=== PATIENT | female | born 1940 | race Asian ===

== ENCOUNTER 2019-01-24 10:00 | Outpatient (CLI) | payer MEDICARE, OTHER ==
--- NOTE | 2019-01-25 09:37 | DEXA Report ---
Reason: ASYMPTOMATIC MENOPAUSAL STATE Procedure Date: 01/24/2019 Accession Number: [id number] / [id number] Procedure: DEX - Dexa Spine and/or Hip CPT Code: FULL RESULT: EXAM: Dexa Spine and/or Hip DATE: 01/24/2019 10:45 AM CLINICAL HISTORY: ASYMPTOMATIC MENOPAUSAL STATE TECHNIQUE: Dual energy x-ray absorptiometry (DXA) was performed on a [employer] System. Regions measured are the AP Spine, femoral neck, and if needed forearm. COMPARISON: None. In accordance with the International Society for Clinical Densitometry (ISCD) guidelines, data from previous exams may be reanalyzed using current recommendations and techniques. This is done to allow a more accurate basis for comparison with the current study. FINDINGS: The data for the lumbar spine is as follows: BMD (g/cm/cm) T-SCORE Z-SCORE REGION L1 0.799 -2.8 -0.3 L2 0.849 -2.9 -0.4 L3 0.847 -2.9 -0.5 L4 0.890 -2.6 -0.1 TOTAL 0.849 -2.8 -0.3 NOTE: All evaluable vertebrae are used for classification The data for the hip is as follows: BMD (g/cm/cm) T-SCORE Z-SCORE REGION Neck 0.855 -1.3 1.1 TOTAL 0.791 -1.7 0.6 NOTE: The femoral neck or total proximal femur, whichever is lowest, is used for classification. IMPRESSION: THE WHO CLASSIFICATION BASED ON THE INTERNATIONAL REFERENCE STANDARD IS OSTEOPOROSIS. THE FRACTURE RISK IS HIGH. RECOMMENDATION: Patients with diagnosis of osteoporosis or osteopenia should have regular bone mineral density assessment. For those eligible for Medicare, routine testing is allowed once every 2 years. Testing frequency can be increased for patients who have rapidly progressing disease or for those who are receiving medical therapy to restore bone mass. COMMENT: World Health Organization (WHO) definitions for osteoporosis and osteopenia: NORMAL BMD: T-score at -1.0 or higher, fracture risk is low OSTEOPENIA BMD: T-score between -1.0 and -2.5, fracture risk is increased. OSTEOPOROSIS BMD: T-score at -2.5 or lower, fracture risk is high. National Osteoporosis Foundation recommends: 1. Obtain adequate dietary calcium (at least 1200 mg per day) and vitamin D (400-800 international units per day). 2. Participate, as appropriate, in regular weightbearing and muscle-strengthening exercise. 3. Avoid tobacco use and reduce alcohol and caffeine intake. 4. For more detailed information see the website at www.NOF.org.
== END 2019-01-24 10:01 | disposition home or self-care (01) ==
LOC: DI 10:00
PROVIDERS: ATTEND Plastic Surgery
DX: M81.0 Age-related osteoporosis without current pathological fracture (principal)
CPT/HCPCS: 77080

== ENCOUNTER 2019-09-10 18:26 | Observation (INO) | payer MEDICARE, OTHER ==
[2019-09-10 19:17] LABS: BASOPHILS % (AUTO) 0.2 %; LYMPHOCYTES # (AUTO) 0.6 10^3/uL (1.5-3.5); MEAN CORPUSCULAR HEMOGLOBIN 31.5 pg (27.0-31.0); MEAN CORPUSCULAR HGB CONC 32.7 g/dL (32.0-36.0); MEAN CORPUSCULAR VOLUME 96.1 fL (81.0-99.0); MONOCYTES # (AUTO) 0.1 10^3/uL (0.0-1.0); MONOCYTES % (AUTO) 1.6 %; NEUTROPHILS # (AUTO) 7.3 10^3/uL (1.5-6.6); PLT - PLATELET COUNT 208 10^3/uL (130-450); RED BLOOD COUNT 4.13 10^6/uL (4.20-5.40); RED CELL DISTRIBUTION WIDTH 13.3 % (12.0-15.0)
[2019-09-10 19:31] LABS: ALBUMIN 4.1 g/dL (3.2-5.5); ALBUMIN/GLOBULIN RATIO 1.2 (1.0-2.2); BILIRUBIN,TOTAL 1.2 mg/dL (0.2-1.0); CALCIUM 8.8 mg/dL (8.5-10.3); CREATININE 0.7 mg/dL (0.4-1.0); TOTAL PROTEIN 7.6 g/dL (6.7-8.2)
[2019-09-10 19:32] LABS: BILIRUBIN,URINE NEGATIVE (NEGATIVE); GLUCOSE, URINE (UA) NEGATIVE (NEGATIVE); KETONES,URINE (UA) 40 mg/dL (NEGATIVE); LEUKOCYTE ESTERASE, URINE NEGATIVE (NEGATIVE); NITRITE,URINE POSITIVE (NEGATIVE); OCCULT BLOOD,URINE SMALL (NEGATIVE); PROTEIN,URINE 30 mg/dL (NEGATIVE); UROBILINOGEN,URINE 0.2 (NORMAL) E.U./dL (NORMAL)
[2019-09-10 19:36] LABS: CLARITY,URINE CLEAR (CLEAR)
[2019-09-10 19:43] LABS: BACTERIA,URINE Many /HPF (None Seen); RBC,URINE 0-5 /HPF (0-5); SQUAMOUS EPITHELIAL CELL,UR NONE SEEN (<= Few)
--- NOTE | 2019-09-10 19:47 | ED Physician Documentation ---
PD HPI ABD PAIN - Stated complaint Stated Complaint: LOWER ABD PX, NAUSEA - Chief complaint Chief Complaint: Abd Pain - History obtained from History obtained from: Patient - History of Present Illness Timing - onset: Today (this morning, abrupt onset of pain left abd, which has persistent through the day.) Timing - duration: Days (1/2) Timing - details: Abrupt onset, Still present, Waxing and waning Quality: Cramping, Aching, Pain Location: LUQ, Periumbilical Radiation: Left flank Improved by: Position (worse lying on left side). No: Eating, Laying still Worsened by: No: Eating, Moving, Breathing Associated symptoms: Nausea, Loss of appetite. No: Fever, Vomiting, Diarrhea, Hematuria, Dizzy, Near syncope / syncope Similar symptoms before: Has not had sx before Recently seen: Not recently seen Review of Systems Constitutional: denies: Fever, Chills, Myalgias, Weight Loss Nose: denies: Rhinorrhea / runny nose, Congestion Throat: denies: Sore throat Cardiac: denies: Chest pain / pressure, Pedal edema, Calf pain Respiratory: denies: Cough GI: reports: Abdominal Pain, Nausea. denies: Abdominal Swelling, Vomiting, Diarrhea : denies: Dysuria, Frequency Neurologic: reports: Generalized weakness. 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 - Present Medications Home Medications: Ambulatory Orders Medication Instructions Recorded Confirmed No Known Home Medications 03/06/15 03/06/15 - Allergies Allergies/Adverse Reactions: Allergies Allergy/AdvReac Type Severity Reaction Status Date / Time No Known Drug Allergies Allergy Verified 03/06/15 17:31 PD ED PE NORMAL - Vitals Vital signs reviewed: Yes - General General: Alert and oriented X 3, No acute distress, Well developed/nourished - HEENT HEENT: Moist mucous membranes, Pharynx benign - Neck Neck: Supple, no meningeal sign, No adenopathy - Cardiac Cardiac: RRR, No murmur - Respiratory Respiratory: Clear bilaterally - Abdomen Abdomen: Normal bowel sounds, Soft, Non distended, No organomegaly, Other (Tend er in the mid to left-sided abdomen with out any percussion or rebound tenderness. The left flank has some moderate tenderness to percussion.) - Female Female : Deferred - Rectal Rectal: Deferred - Back Back: Other (left flank tender to percussion. ) - Derm Derm: Normal color, Warm and dry - Extremities Extremities: No tenderness to palpate, Normal ROM s pain, No edema, No calf tenderness / cord - Neuro Neuro: Alert and oriented X 3, No motor deficit, Normal speech Results - Vitals Vitals: Vital Signs - 24 hr 09/10/19 09/10/19 09/10/19 18:32 18:35 21:35 Temperature 36.9 C Heart Rate 77 77 77 Respiratory 18 18 18 Rate Blood Pressure 154/89 H 154/89 H 115/72 O2 Saturation 99 99 100 09/10/19 23:00 Temperature Heart Rate 77 Respiratory 16 Rate Blood Pressure 114/78 O2 Saturation 99 Oxygen O2 Source Room air - Labs Labs: Laboratory Tests 09/10/19 09/10/19 09/10/19 18:45 19:10 19:10 WBC 8.0 RBC 4.13 L Hgb 13.0 Hct 39.7 MCV 96.1 MCH 31.5 H MCHC 32.7 RDW 13.3 Plt Count 208 MPV 9.0 Neut # (Auto) 7.3 H Lymph # (Auto) 0.6 L Hendricks # (Auto) 0.1 Eos # (Auto) 0.0 Baso # (Auto) 0.0 Absolute Nucleated RBC 0.00 Nucleated RBC % 0.0 ESR Sodium 137 Potassium 3.7 Chloride 99 L Carbon Dioxide 25 Anion Gap 13.0 BUN 15 Creatinine 0.7 Estimated GFR (MDRD) 81 L Glucose 173 H Calcium 8.8 Total Bilirubin 1.2 H AST 25 ALT 12 Alkaline Phosphatase 51 Total Protein 7.6 Albumin 4.1 Globulin 3.5 Albumin/Globulin Ratio 1.2 Lipase 29 Urine Color YELLOW Urine Clarity CLEAR Urine pH 6.0 Ur Specific Dubberly 1.025 Urine Protein 30 H Urine Glucose (UA) NEGATIVE Urine Ketones 40 H Urine Occult Blood SMALL H Urine Nitrite POSITIVE H Urine Bilirubin NEGATIVE Urine Urobilinogen 0.2 (NORMAL) Ur Leukocyte Esterase NEGATIVE Urine RBC 0-5 Urine WBC 0-3 Ur Squamous Epith Cells NONE SEEN Urine Bacteria Many H Ur Microscopic Review INDICATED Urine Culture Comments INDICATED 09/10/19 23:35 WBC RBC Hgb Hct MCV MCH MCHC RDW Plt Count MPV Neut # (Auto) Lymph # (Auto) Hendricks # (Auto) Eos # (Auto) Baso # (Auto) Absolute Nucleated RBC Nucleated RBC % ESR 13 Sodium Potassium Chloride Carbon Dioxide Anion Gap BUN Creatinine Estimated GFR (MDRD) Glucose Calcium Total Bilirubin AST ALT Alkaline Phosphatase Total Protein Albumin Globulin Albumin/Globulin Ratio Lipase Urine Color Urine Clarity Urine pH Ur Specific Dubberly Urine Protein Urine Glucose (UA) Urine Ketones Urine Occult Blood Urine Nitrite Urine Bilirubin Urine Urobilinogen Ur Leukocyte Esterase Urine RBC Urine WBC Ur Squamous Epith Cells Urine Bacteria Ur Microscopic Review Urine Culture Comments - Rads (name of study) abd/pelvic CT Radiology: Prelim report reviewed (The superior aspect of the left kidney showed lack of contrast material and a wedge-shaped consistent with a renal infarct. The lower aspect of the kidney does have blood flow. There is no free fluid.), See rad report PD MEDICAL DECISION MAKING - ED course Complexity details: reviewed results (The CT scan shows renal infarct in the superior aspect of it. The CT otherwise was normal. I talked with vascular surgery in [facility] as [facility] did not have beds available. He however said the patient would not have any indication for intervention surgically nor endovascularly. The patient can be treated by medicine service with an she correction anticoagulation, fluids, pain medicine a nd evaluate for possible embolic phenomena versus thrombotic.), re-evaluated patient (She is feeling improved with some IV fluids along with medicines for pain and nausea.), considered differential, d/w patient, d/w lifestyle consultant (I talked with vascular surgery in [facility] who said they would not be any reason for endovascular approach. The infarct would be completed at this point and no salvageability of the infarcted section of the kidney. He suggested anticoagulation for 3 to 6 months and also an embolic work-up for concern of an embolic cause as thrombotic is less common. He suggested echocardiogram and coagulation hypercoagulable work-up and sed rate for inflammatory process. Dedicated ultrasound of the renal artery may be appropriate as well.) ED course: I talked with our hospitalist who agreed to have the patient in the hospital for further medications and fluids. She does have a UTI which presumably is incidental and not causative of the renal infarct. Evaluation for embolic phenomenon such as an echo cardiogram. Departure - Departure Disposition: ED Place in Observation Clinical Impression: Left sided abdominal pain, Renal infarct Urinary tract infection Qualifiers: Urinary tract infection type: site unspecified Hematuria presence: without hematuria Qualified Code(s): N39.0 - Urinary tract infection, site not specified Condition: Stable Record reviewed to determine appropriate education?: Yes Discharge Date/Time: 09/11/19 00:45
[2019-09-10] MEDS ORDERED: SODIUM CHLORIDE 0.9% 1,000 ML IV ONE (20:12)
[2019-09-10] MEDS ORDERED: ONDANSETRON 4 MG/2 ML VIAL IVP STA (20:12)
[2019-09-10] MEDS ORDERED: MORPHINE 2 MG/ML CARPUJECT IVP STA (20:12)
[2019-09-10] MEDS ORDERED: cefTRIAXone 1 GM VIAL IVP STA (20:13)
[2019-09-10] MEDS ORDERED: IOVERSOL 320 100 ML VIAL IVP ONE ×2 (20:35→21:00)
--- NOTE | 2019-09-10 21:27 | CT Report ---
Reason: lower/mid abd pain Procedure Date: 09/10/2019 Accession Number: [id number] / [id number] Procedure: CT - Abdomen/Pelvis W CPT Code: Final Report FULL RESULT: EXAM: CT ABDOMEN AND PELVIS EXAM DATE: 09/10/2019 08:57 PM. CLINICAL HISTORY: Lower/mid abd pain. COMPARISONS: None. TECHNIQUE: Routine helical CT imaging was performed through the abdomen and pelvis. IV contrast: OPTI 320 90ML. Enteric contrast: No. Reconstructions: Coronal and sagittal. In accordance with CT protocol optimization, one or more of the following dose reduction techniques were utilized for this exam: automated exposure control, adjustment of mA and/or KV based on patient size, or use of iterative reconstructive technique. FINDINGS: Lung Bases: Unremarkable. Liver: Normal. No masses. Gallbladder/Bile Ducts: Unremarkable. Spleen: Normal. Pancreas: Normal. Adrenal Glands: Normal. Kidneys: A large wedge shaped focus of hypoattenuation in superior pole of left kidney (image 19 on series 4), concerning for renal infarct. A 1 cm hypodense simple cyst in lower pole of left kidney. No concerning masses or hydronephrosis. Peritoneal Cavity/Bowel: Normal. No free fluid, free air or adenopathy. No masses or acute inflammatory process. The appendix is well visualized and normal. Pelvic Organs: Normal. The bladder and visualized pelvic organs are within normal limits. Vasculature: Mild atherosclerotic calcification of abdominal aorta extending into bilateral iliacs. Bones: No significant abnormality. Other: None. IMPRESSION: A large wedge shaped focus of hypoattenuation in superior pole of left kidney, concerning for renal infarct. No other significant abdominal pathology. RADIA
[2019-09-10] MEDS ORDERED: ENOXAPARIN 60 MG/0.6 ML SYRINGE SUBQ STA (23:12)
[2019-09-10] MEDS ORDERED: ONDANSETRON 4 MG/2 ML VIAL IVP PRN (23:36)
[2019-09-10] MEDS ORDERED: MORPHINE 2 MG/ML CARPUJECT IVP PRN (23:36)
[2019-09-10] MEDS ORDERED: SODIUM CHLORIDE FLUSH 0.9% 10 ML SYRINGE IVP PRN (23:36)
[2019-09-10] MEDS ORDERED: ENOXAPARIN 100 MG/ML SYRINGE SUBQ ONE (23:44)
[2019-09-10] MEDS ORDERED: ENOXAPARIN 60 MG/0.6 ML SYRINGE SUBQ SCH (23:45)
--- NOTE | 2019-09-10 23:55 | HISTORY & PHYSICAL EXAMINATION ---
Chief Complaint - Chief Complaint Chief Complaint: abd pain History of Present Illness - Admitted From Admitted From:: [facility] - History Obtained From Records Reviewed: yes History obtained from: patient and spouse - History of Present Illness HPI Comment/Other: Patient is a 79 y/o female who presented to the ED with sudden onset of lower abdominal pain which started around 9 am this morning after she woke up. She denied any previous occurrence or any complains the previous day. She denied chest pain, dyspnea, nausea, vomiting, fever or chills. In the ED work up included a CT abdomen/pelvis which showed a large wedged shaped focus of hypoat tenuation in the superior pole of the left kidney, concerning for renal infarct. She denied flank pain. She denied any recent procedures. She denied any history of cardiac disease, irregular rhythms or murmurs. She also had a UA which was indicative of a UTI. As a result she was presented for admission History - Past Medical History Cardiovascular: reports: None Respiratory: reports: None Neuro: reports: Dementia Endocrine/Autoimmune: reports: None GI: reports: None ONLINE TRADER: reports: Breast cancer : reports: None HEENT: reports: None Psych: reports: None Musculoskeletal: reports: None Derm: reports: None MRSA Hx?: No - Past Surgical History /ONLINE TRADER: reports: section, Mastectomy (bilateral) - Family & Social History Family History: Brother: Cancer (brothers from GI cancer) Living arrangement: At home Living Situation: With spouse/s.o. Social History Notes: She has never smoked. Drinks occassionally. No illicit drug use - POLST Patient has POLST: No POLST Status: Full Code Meds/Allgy - Home Medications Home Medications: Ambulatory Orders Medication Instructions Recorded Confirmed No Known Home Medications 03/06/15 03/06/15 - Allergies Allergies/Adverse Reactions: Allergies Allergy/AdvReac Type Severity Reaction Status Date / Time No Known Drug Allergies Allergy Verified 03/06/15 17:31 Review of Systems - Constitutional Constitutional: denies: Fatigue, Fever, Chills - Eyes Eyes: denies: Pain, Blurred vision, Vision loss, Dipolpia - Ears, Nose & Throat Ears, Nose & Throat: denies: Vertigo, Nasal pain, Sore throat - Cardiovascular Cariovascular: denies: Irregular heart rate, Palpitations, Chest pain, Edema, Lightheadedness, Syncope, Exertional dyspnea, Decr. exercise tolerance - Respiratory Respiratory: denies: Cough, Sputum production, Wheezing, Snoring, SOB at rest, SOB with exertion - Gastrointestinal Gastrointestinal: reports: Abdominal pain (lower abdomen). denies: Abdominal distention, Nausea, Vomiting, Reflux/heartburn - Genitourinary Genitourinary: denies: Dysuria, Frequency, Urgency, Hematuria, Flank pain - Musculoskeletal Musculoskeletal: denies: Back pain - Integumentary Integumentary: denies: Rash, Pruritis, Lesions, Dryness, Pigment changes - Neurological Neurological: denies: General weakness, Focal weakness, Headache, Dizziness - Psychiatric Psychiatric: denies: Depression, Anxiety - Endocrine Endocrine: denies: Polyuria, Polydypsia - Hematologic/Lymphatic Hematologic/Lymphatic: denies: Anemia, Bruising, Petechiae Prior Level of Functionality: She is independent of activities of daily living Exam - Vital Signs Vital Signs: Vital Signs x48h Temp Pulse Resp BP Pulse Ox 09/10/19 23:00 77 16 114/78 99 09/10/19 21:35 77 18 115/72 100 09/10/19 18:35 77 18 154/89 H 99 09/10/19 18:32 36.9 C 77 18 154/89 H 99 - Physical Exam General Appearance: positive: Alert, Moderate distress Eyes Bilateral: positive: Normal inspection, PERRL, EOMI ENT: positive: ENT inspection nml, No signs of dehydration Neck: positive: Nml inspection, No JVD, Trachea midline Respiratory: positive: Chest non-tender, No respiratory distress, Breath sounds nml. negative: Wheezes, Rales, Rhonchi Cardiovascular: positive: Regular rate & rhythm. negative: No murmur Abdomen: positive: Non-tender, Nml bowel sounds, No distention, Tenderness. negative: Guarding, Rebound Back: positive: Nml inspection Skin: positive: Color nml, No rash, Warm, Dry. negative: Cyanosis, Pallor, Skin rash Extremities: positive: Non-tender, Full ROM, Nml appearance, No pedal edema Neurologic/Psychiatric: positive: Oriented x3, Motor nml, Sensation nml, Mood/affect nml Conclusion/Plan - Problem List (1) Renal infarct Conclusion/Plan: Left sided. Superior pole Patient started on lovenox 50mg bid Will be swtiched to and oral anticoagulant prior to discharge Per vascular surgery, no intervention is warranted since infarct is complete Patient will need to be on the oral anticoagulant for 6 months 2D echo ordered for the am. (2) Urinary tract infection Conclusion/Plan: Patient started on Rocephin Urine culture pending Qualifiers: Urinary tract infection type: site unspecified Hematuria presence: without hematuria Qualified Code(s): N39.0 - Urinary tract infection, site not specified (3) Dementia Conclusion/Plan: Mild On Namenda and Aricept Qualifiers: Dementia behavioral disturbance: without behavioral disturbance - Lab Results Fish Bones: 09/10/19 19:10 09/10/19 19:10 Core Measures - Anticipated LOS I expect patient to be DC'd or transferred within 96 hours.: Yes - DVT/VTE - Prophylaxis VTE/DVT Device ordered at admit?: Yes VTE/DVT Prophylaxis med ordered at admit?: Yes
[2019-09-11] MEDS: SODIUM CHLORIDE FLUSH 0.9% 10 ML SYRINGE IVP SCH ×3 (01:35→19:19)
[2019-09-11] MEDS: MEMANTINE 5 MG TABLET PO SCH ×2 (02:13→20:18)
[2019-09-11] MEDS: DONEPEZIL 5 MG TABLET PO SCH ×2 (02:13→20:18)
[2019-09-11 05:33] LABS: BASOPHILS % (AUTO) 0.2 %; EOSINOPHILS % (AUTO) 0.2 %; HGB - HEMOGLOBIN 11.3 g/dL (12.0-16.0); LYMPHOCYTES # (AUTO) 2.1 10^3/uL (1.5-3.5); LYMPHOCYTES % (AUTO) 25.7 %; MEAN CORPUSCULAR HGB CONC 32.3 g/dL (32.0-36.0); MEAN CORPUSCULAR VOLUME 96.2 fL (81.0-99.0); MEAN PLATELET VOLUME 9.4 fL (7.9-10.8); MONOCYTES # (AUTO) 0.7 10^3/uL (0.0-1.0); MONOCYTES % (AUTO) 8.1 %; NEUTROPHILS # (AUTO) 5.3 10^3/uL (1.5-6.6); NEUTROPHILS % (AUTO) 65.4 %; PLT - PLATELET COUNT 190 10^3/uL (130-450); RED BLOOD COUNT 3.64 10^6/uL (4.20-5.40); RED CELL DISTRIBUTION WIDTH 13.5 % (12.0-15.0); WHITE BLOOD COUNT 8.2 x10^3/uL (4.8-10.8)
[2019-09-11 05:38] LABS: INR 1.1 (0.8-1.2); PT - PROTHROMBIN TIME 12.7 secs (9.9-12.6)
[2019-09-11 05:44] LABS: CALCIUM 8.2 mg/dL (8.5-10.3); CREATININE 0.6 mg/dL (0.4-1.0)
[2019-09-11 05:51] LABS: PARTIAL THROMBOPLASTIN TIME 46.3 secs (24.9-33.3)
[2019-09-11] MEDS ORDERED: PANTOPRAZOLE 40 MG VIAL IVP SCH (07:00)
[2019-09-11] MEDS ORDERED: cefTRIAXone 1 GM in SODIUM CHLORIDE 0.9% MINIBAG 100 ML IV SCH (09:00)
[2019-09-11] MEDS ORDERED: POTASSIUM CHLORIDE 20 MEQ TABLET PO ONE (09:12)
[2019-09-11] MEDS: ENOXAPARIN 60 MG/0.6 ML SYRINGE SUBQ SCH ×2 (09:15→20:17)
[2019-09-11] MEDS ORDERED: ACETAMINOPHEN 325 MG TABLET PO PRN (11:58)
--- NOTE | 2019-09-11 15:08 | PHARMACY PROGRESS NOTE ---
- Best Possible Medication History Admit Date and Time: 09/10/19 1618 Processed by: Pharmacy Medication History completed: Yes Patient Interview: Completed Secondary Source(s): Prescription bottles, Spouse/Significant other As the person ultimately responsible for medication therapy, providers are able to order a medication from an existing home medication list in [facility] via the "Reconcile Routine" prior to Confirmation of that medication by community support specialist. Such practice is discouraged except when the physician, in their clinical judgment, deems that a medical need exists for a medication without regard to previous use.
--- NOTE | 2019-09-11 19:23 | Discharge Plan ---
Discharge Plan Problem Reviewed?: Yes Disposition: Home, Self Care Condition: Good Prescriptions: Apixaban [Eliquis] 10 mg PO BID 7 Days #28 tablet Apixaban [Eliquis] 5 mg PO BID #60 tablet Diet: Regular Activity Restrictions: Activity as Tolerated Shower Restrictions: No Driving Restrictions: No Health Concerns: You were seen in the hospital because you had abdominal pain along with nausea and vomiting. This has since improved and you are able to tolerate oral intake. You were incidentally found to have what is called an infarct of your left kidney. Part of the kidney likely had decreased blood supply in the past and this has caused the tissue there to . Fortunately your kidney numbers are stable. We discussed with the vascular surgeon at [facility] and they recommended starting you on a blood thinner which you need to continue to take for at least 3 months. You will need blood work done eventually once you are off the blood thinner thinner to see if you are at increased risk of having thick blood. There was initially a concern for urinary tract infection but because you had no symptoms, you no longer continue on antibiotics. If you do develop symptoms such as burning, foul-smelling urine, cloudy urine then please see your primary care physician. Plan of Treatment: Please take the blood thinner as prescribed. Eliquis is the blood thinner you will be taking. Please take 10 mg twice a day for the first 7 days and then take 5 mg twice a day. You will need to be on this for at least 3 months but possibly up to 6 months. Please follow-up with your primary care physician. Care Goals: Please follow-up with your primary care physician within 1 week. You will need blood work in the future once you are off the blood thinner to see if you are at increased risk of having thick blood. No Smoking: If you smoke, Please STOP! Call for help.
--- NOTE | 2019-09-11 19:26 | DISCHARGE SUMMARY ---
"Discharge Summary Admit Date: 09/10/19 Discharge Date: 09/11/19 Discharging Provider: Raheem Rogers Condition at Discharge: Good Discharge Disposition: Home, Self Care - DIAGNOSES Admission Diagnoses: Renal infarct Urinary tract infection Dementia Discharge Diagnoses with Status of Each Condition: Renal infarct - Was evident on the CT of the abdomen and pelvis. This is likely an incidental finding but vascular surgery recommended anticoagulation for at least 3 months. She started on Lovenox twice a day. An echo was obtained which did not show thrombus. She remained in a sinus rhythm while she was hospitalized. She was discharged on Eliquis to continue anticoagulation and she was asked to follow-up with her primary care physician. Hypercoagulable study was not pursued as she was already on anticoagulation. This will be needed once she is completed with anticoagulation and can be done by her primary care provider Asymptomatic bacteriuria - Her urine analysis revealed positive nitrites and many bacteria but there were no WBCs or leukocyte esterase. She was asymptomatic. She was initially started on ceftriaxone but this was discontinued given she had no symptoms. She was asked to follow-up with her primary care provider if she develops symptoms suggestive of UTI. Dementia - Stable. She will continue her home Aricept and Namenda. - HPI History of Present Illness: H&P per Dr. Rodriguez on 09/10/19: Patient is a 79 y/o female who presented to the ED with sudden onset of lower abdominal pain which started around 9 am this morning after she woke up. She denied any previous occurrence or any complains the previous day. She denied chest pain, dyspnea, nausea, vomiting, fever or chills. In the ED work up inclu ded a CT abdomen/pelvis which showed a large wedged shaped focus of hypoattenuation in the superior pole of the left kidney, concerning for renal infarct. She denied flank pain. She denied any recent procedures. She denied any history of cardiac disease, irregular rhythms or murmurs. She also had a UA which was indicative of a UTI. As a result she was presented for admission - CONSULTS | PROCEDURES Procedures: She had an echocardiogram which showed ejection fraction of 65%. There is no thrombus present. - HOSPITAL COURSE Hospital Course: He was admitted for abdominal pain along with nausea and vomiting. She was found to have a left-sided renal infarct on CT of the abdomen and pelvis. Vascular surgery recommended anticoagulation and she was started on Lovenox 50 mg twice a day. The patient was started on clear liquid diet which she tolerated well and her diet was advanced. She reported no more nausea or vomiting. She was then discharged on Eliquis for anticoagulation. She will take 10 mg twice a day for 7 days followed by 5 mg twice a day. She was asked to follow-up with her primary care physician to obtain a hypercoagulable work up in the future once she finishes her anticoagulation which vascular surgery recommended to continue for at least 3 to 6 months. Was concern for urinary tract infection initially and she started on ceftriaxone given her abdominal pain and the fact that her urinalysis showed positive nitrites and many bacteria. She had no pyuria and negative leukocyte esterase. She had no symptoms suggestive of an infection, antibiotics were discontinued. - ALLERGIES Allergies/Adverse Reactions: Allergies Allergy/AdvReac Type Severity Reaction Status Date / Time No Known Drug Allergies Allergy Verified 03/06/15 17:31 - MEDICATIONS Home Medications: Ambulatory Orders Medication Instructions Recorded Confirmed Apixaban [Eliquis] 5 mg PO BID #60 tablet 09/11/19 Apixaban [Eliquis] 10 mg PO BID 7 Days #28 tablet 09/11/19 Donepezil [Aricept] 5 mg PO QPM 09/11/19 09/11/19 Memantine HCl [Namenda] 10 mg PO DAILY 09/11/19 09/11/19 - PHYSICAL EXAM AT DISCHARGE General Appearance: positive: No acute distress, Alert Eyes Bilateral: positive: Normal inspection ENT: positive: ENT inspection nml Neck: positive: Nml inspection Respiratory: positive: No respiratory distress, Breath sounds nml. negative: Wheezes, Rales, Rhonchi Cardiovascular: positive: Regular rate & rhythm, No murmur. negative: Tachycardia, Bradycardia, Systolic murmur, Diastolic murmur Abdomen: positive: Non-tender, No distention. negative: Tenderness Skin: positive: No rash, Warm, Dry Neurologic/Psychiatric: negative: Disoriented to person, Disoriented to place - LABS Result Diagrams: 09/11/19 04:40 09/11/19 04:40 - DIAGNOSTIC IMAGING Diagnostic Imaging Results: Final report reviewed - FOLLOW UP Follow Up: She was asked to follow-up with her primary care physician within 1 to 2 weeks. - TIME SPENT Time Spent in Discharge (Minutes): 30"
[2019-09-11 20:23] VITALS: BP 136/81
== END 2019-09-11 20:40 | disposition home or self-care (01) ==
LOC: ED 18:26 → MS3 23:36
PROVIDERS: ADMIT Internal Medicine; ATTEND Internal Medicine
DX: N28.0 Ischemia and infarction of kidney (principal); R10.32 Left lower quadrant pain; R11.2 Nausea with vomiting, unspecified; R82.71 Bacteriuria; F03.90 Unspecified dementia, unspecified severity, without behavioral disturbance, psychotic disturbance, mood disturbance, and anxiety; Z79.899 Other long term (current) drug therapy; Z85.3 Personal history of malignant neoplasm of breast; Z90.13 Acquired absence of bilateral breasts and nipples
CPT/HCPCS: 36415; 74177; 80048; 80053; 81001; 83690; 85025; 85610; 85651; 85730; 87077; 87086; 87181; 93005; 93306; 96361; 96365; 96372; 96375; 99284; 99285; A9270; G0378; J1650; Q9967; 81003

== ENCOUNTER 2019-09-18 12:13 | Emergency (ER) | payer MEDICARE, OTHER ==
--- NOTE | 2019-09-18 12:39 | ED Physician Documentation ---
History of Present Illness - Stated complaint Stated Complaint: ABD/CHEST PX,LETHARGIC - Chief complaint Chief Complaint: General - History obtained from History obtained from: Patient, Family - History of Present Illness Pain level max: 5 Pain level now: 3 Improved by: nothing Worsened by: nothing - Additonal information Additional information: 79-year-old female presents to the emergency department with diffuse abdominal and chest pain for the past several days. Comes and goes. Seems to be worse today. Was admitted last week for same. Does have nausea as well. No vomiting. No diarrhea. CT scan last week showed a possible renal infarct, she was started on Eliquis. She also had a UTI but was not sent home on antibiotics. She was given Rocephin x1 in the hospital. She has not had any fevers. No back pain. History is limited by her dementia and memory impairment. Family helps to fill in the gaps. Review of Systems Unable to obtain: Dementia Constitutional: denies: Fever, Chills Nose: denies: Rhinorrhea / runny nose Throat: denies: Sore throat Cardiac: denies: Palpitations Respiratory: denies: Cough GI: reports: Nausea. 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 : None HEENT: None Psych: None Musculoskeletal: None Derm: None - Past Surgical History Past Surgical History: Yes /APPLICATION SOFTWARE DEVELOPER: section, Mastectomy - Present Medications Home Medications: Ambulatory Orders Medication Instructions Recorded Confirmed Apixaban [Eliquis] 5 mg PO BID #60 tablet 09/11/19 Apixaban [Eliquis] 10 mg PO BID 7 Days #28 tablet 09/11/19 Donepezil [Aricept] 5 mg PO QPM 09/11/19 09/11/19 Memantine HCl [Namenda] 10 mg PO DAILY 09/11/19 09/11/19 Cephalexin [Keflex] 500 mg PO Q6H #28 capsule 09/18/19 Promethazine [Phenergan] 12.5 mg PO Q6H PRN #10 tab 09/18/19 oxyCODONE [Roxicodone] 2.5 - 5 mg PO Q6H PRN #10 tablet 09/18/19 - Allergies Allergies/Adverse Reactions: Allergies Allergy/AdvReac Type Severity Reaction Status Date / Time No Known Drug Allergies Allergy Verified 03/06/15 17:31 - Social History Does the pt smoke?: No Smoking Status: Never smoker Does the pt drink ETOH?: No Does the pt have substance abuse?: No - Immunizations Immunizations are current?: Yes - POLST Patient has POLST: No POLST Status: Full Code PD ED PE NORMAL - Vitals Vital signs reviewed: Yes - General General: No acute distress, Well developed/nourished - HEENT HEENT: Atraumatic, PERRL, Moist mucous membranes, Pharynx benign - Neck Neck: Supple, no meningeal sign, No bony TTP - Cardiac Cardiac: RRR, Strong equal pulses - Respiratory Respiratory: No respiratory distress, Clear bilaterally - Abdomen Abdomen: Soft, Other (Mild diffuse tenderness to palpation without peritoneal signs) - Back Back: No spinal TTP - Derm Derm: Warm and dry - Extremities Extremities: No edema - Neuro Neuro: Other (Alert, oriented to person and place. Disoriented to time. Pleasant) - Psych Psych: Normal mood Results - Vitals Vitals: Vital Signs - 24 hr 09/18/19 09/18/19 09/18/19 12:31 13:30 15:27 Temperature 36.5 C 36.5 C Heart Rate 63 78 60 Respiratory 18 16 16 Rate Blood Pressure 165/90 H 147/95 H 169/92 H O2 Saturation 99 99 100 09/18/19 09/18/19 09/18/19 16:09 17:00 17:30 Temperature Heart Rate 66 69 71 Respiratory 16 18 15 Rate Blood Pressure 128/92 H 145/94 H 127/82 H O2 Saturation 97 97 95 Oxygen O2 Source Room air - EKG (time done) 1231 Rate: Rate (enter#) (65) Rhythm: NSR [place]: Normal Intervals: Normal GA QRS: Normal Ischemia: Normal ST segments - Labs Labs: Laboratory Tests 09/18/19 09/18/19 09/18/19 12:49 12:49 12:49 WBC 7.7 RBC 3.96 L Hgb 12.2 Hct 37.8 MCV 95.5 MCH 30.8 MCHC 32.3 RDW 13.4 Plt Count 233 MPV 8.6 Neut # (Auto) 6.3 Lymph # (Auto) 0.8 L [place] # (Auto) 0.5 Eos # (Auto) 0.0 Baso # (Auto) 0.0 Absolute Nucleated RBC 0.00 Nucleated RBC % 0.0 Sodium 138 Potassium 3.1 L Chloride 100 L Carbon Dioxide 26 Anion Gap 12.0 BUN 13 Creatinine 0.8 Estimated GFR (MDRD) 70 L Glucose 166 H Lactic Acid Calcium 8.5 Total Bilirubin 1.2 H AST 24 ALT 28 Alkaline Phosphatase 70 Troponin I High Sens 4.2 Total Protein 7.4 Albumin 3.6 Globulin 3.8 Albumin/Globulin Ratio 0.9 L Lipase 32 Urine Color Urine Clarity Urine pH Ur Specific [place] Urine Protein Urine Glucose (UA) Urine Ketones Urine Occult Blood Urine Nitrite Urine Bilirubin Urine Urobilinogen Ur Leukocyte Esterase Urine RBC Urine WBC Ur Squamous Epith Cells Urine Bacteria Ur Microscopic Review Urine Culture Comments 09/18/19 09/18/19 13:15 13:23 WBC RBC Hgb Hct MCV MCH MCHC RDW Plt Count MPV Neut # (Auto) Lymph # (Auto) [place] # (Auto) Eos # (Auto) Baso # (Auto) Absolute Nucleated RBC Nucleated RBC % Sodium Potassium Chloride Carbon Dioxide Anion Gap BUN Creatinine Estimated GFR (MDRD) Glucose Lactic Acid 1.4 Calcium Total Bilirubin AST ALT Alkaline Phosphatase Troponin I High Sens Total Protein Albumin Globulin Albumin/Globulin Ratio Lipase Urine Color YELLOW Urine Clarity SL. CLOUDY Urine pH 6.0 Ur Specific [place] 1.025 Urine Protein 100 H Urine Glucose (UA) NEGATIVE Urine Ketones TRACE Urine Occult Blood LARGE H Urine Nitrite NEGATIVE Urine Bilirubin NEGATIVE Urine Urobilinogen 1 (NORMAL) Ur Leukocyte Esterase NEGATIVE Urine RBC TNTC H Urine WBC 0-3 Ur Squamous Epith Cells NONE SEEN Urine Bacteria Few Ur Microscopic Review INDICATED Urine Culture Comments NOT INDICATED - Rads (name of study) CT angiogram abdomen and pelvis Radiology: Prelim report reviewed, EMP read contemporaneously, See rad report PD MEDICAL DECISION MAKING - ED course Complexity details: reviewed results, re-evaluated patient, considered differential, d/w patient, d/w family, d/w clinical documentation consultant (Dr. Gutierrez, vascular surgery, [facility] in [place]) ED course: 79-year-old demented female presents with abdominal and chest pain. We will treat her for the UTI. Her renal infarct appears to be involving. She does have a possible short segment dissection versus disease in her distal aspect of the NIKKI. Discussed the findings with vascular surgery at [facility] in [place], they recommend continuing her current care. Patient and family are comfortable with this. Social work was also consulted and family was given dementia resources. Patient is well-appearing, nontoxic. Pain well controlled. Patient and family counseled regarding signs and symptoms for which I believe and urgent re-evaluation would be necessary. Patient with good understanding of and agreement to plan and is comfortable going home at this time This document was made in part using voice recognition software. While efforts are made to proofread this document, sound alike and grammatical errors may occur. IMPRESSION: 1. No evidence of abdominal aortic aneurysm, stenosis or occlusion. Patent celiac artery, SMA and NIKKI. 2. Linear low density in the NIKKI extending from just distal to its origin into a branch vessel which extends to the left colon. Findings may represent a short segment dissection versus irregular atheromatous disease, a component which causes stenosis at the origin of the branch vessel which extends to the descending colon. Lack of opacification of the distal aspect of the NIKKI branch which extends to the descending colon which may be due to acute occlusion, limited flow or changes related to stenosis. The NIKKI is larger in size in comparison to the recent study from 09/10/2019. 2. Patent renal arteries bilaterally. No occlusion or severe stenosis. 3. Evolving segments of decreased attenuation throughout the upper and lower pole of the kidney consistent with evolving infarcts with more extensive involvement of the lower pole of the left kidney compared to 09/10/2019. 4. Mild thickening of the descending colon suggested although not definitive and limited in detail due to lack of distention. No other areas of bowel wall thickening are seen on these arterial enhanced images. 5. Cardiomegaly. Departure - Departure Disposition: Home, Self Care Clinical Impression: Renal infarct, Stenosis of inferior mesenteric artery Urinary tract infection Qualifiers: Urinary tract infection type: acute cystitis Hematuria presence: without he maturia Qualified Code(s): N30.00 - Acute cystitis without hematuria Condition: Good Instructions: ED UTI Cystitis Female Follow-Up: DAJUAN WALLS MD [Primary Care Provider] - Within 1 week Prescriptions: Cephalexin [Keflex] 500 mg PO Q6H #28 capsule oxyCODONE [Roxicodone] 2.5 - 5 mg PO Q6H PRN #10 tablet PRN Reason: Abdominal Pain Promethazine [Phenergan] 12.5 mg PO Q6H PRN #10 tab PRN Reason: Nausea / Vomiting Comments: Use the medications as prescribed. Return if she worsens. Follow-up with your doctor for further care. She will likely have pain for several weeks due to the renal infarct. I did speak with Dr. Gutierrez, vascular surgery, at [facility] in [place] today and she recommends continuing the Eliquis. Do not drink alcohol or drive while on narcotic pain medicine. Note that many narcotic pain relievers also contain tylenol/acetaminophen. Please ensure that your total dose of acetaminophen from all sources does not exceed 3 grams (3000mg) per day. You may constipated on this medication, take a stool softener such as "Colace" twice a day while you are on it. Also recommend a mvkl-heb-[id number] laxative such as senna or MiraLAX any day that you do not have a bowel movement. If you received narcotic pain medication in the emergency department, do not drive or operate machinery for the next 24 hours. Discharge Date/Time: 09/18/19 17:43
[2019-09-18] MEDS ORDERED: cefTRIAXone 1 GM VIAL IVP STA (12:52)
[2019-09-18] MEDS ORDERED: SODIUM CHLORIDE 0.9% 1,000 ML IV ONE (12:53)
[2019-09-18] MEDS ORDERED: PROMETHAZINE INJ 12.5 MG in SODIUM CHLORIDE 0.9% 50 ML IV STA (12:55)
[2019-09-18 13:12] LABS: BASOPHILS % (AUTO) 0.4 %; EOSINOPHILS % (AUTO) 0.4 %; HGB - HEMOGLOBIN 12.2 g/dL (12.0-16.0); LYMPHOCYTES # (AUTO) 0.8 10^3/uL (1.5-3.5); LYMPHOCYTES % (AUTO) 10.4 %; MEAN CORPUSCULAR HEMOGLOBIN 30.8 pg (27.0-31.0); MEAN CORPUSCULAR HGB CONC 32.3 g/dL (32.0-36.0); MEAN CORPUSCULAR VOLUME 95.5 fL (81.0-99.0); MEAN PLATELET VOLUME 8.6 fL (7.9-10.8); MONOCYTES # (AUTO) 0.5 10^3/uL (0.0-1.0); MONOCYTES % (AUTO) 6.6 %; NEUTROPHILS # (AUTO) 6.3 10^3/uL (1.5-6.6); NEUTROPHILS % (AUTO) 81.8 %; PLT - PLATELET COUNT 233 10^3/uL (130-450); RED BLOOD COUNT 3.96 10^6/uL (4.20-5.40); RED CELL DISTRIBUTION WIDTH 13.4 % (12.0-15.0); WHITE BLOOD COUNT 7.7 x10^3/uL (4.8-10.8)
[2019-09-18] MEDS ORDERED: IOVERSOL 320 100 ML VIAL IVP ONE ×2 (13:24→15:01)
[2019-09-18 13:27] LABS: ALBUMIN 3.6 g/dL (3.2-5.5); ALBUMIN/GLOBULIN RATIO 0.9 (1.0-2.2); BILIRUBIN,TOTAL 1.2 mg/dL (0.2-1.0); CALCIUM 8.5 mg/dL (8.5-10.3); CREATININE 0.8 mg/dL (0.4-1.0); TOTAL PROTEIN 7.4 g/dL (6.7-8.2)
[2019-09-18 13:53] LABS: BILIRUBIN,URINE NEGATIVE (NEGATIVE); GLUCOSE, URINE (UA) NEGATIVE (NEGATIVE); KETONES,URINE (UA) TRACE mg/dL (NEGATIVE); LEUKOCYTE ESTERASE, URINE NEGATIVE (NEGATIVE); NITRITE,URINE NEGATIVE (NEGATIVE); OCCULT BLOOD,URINE LARGE (NEGATIVE); PROTEIN,URINE 100 mg/dL (NEGATIVE); UROBILINOGEN,URINE 1 (NORMAL) E.U./dL (NORMAL)
[2019-09-18 13:54] LABS: CLARITY,URINE SL. CLOUDY (CLEAR)
[2019-09-18 14:05] LABS: BACTERIA,URINE Few /HPF (None Seen); RBC,URINE TNTC /HPF (0-5); SQUAMOUS EPITHELIAL CELL,UR NONE SEEN (<= Few)
--- NOTE | 2019-09-18 15:16 | CT Report ---
Reason: abd pain, L renal infarct Procedure Date: 09/18/2019 Accession Number: [id number] / [id number] Procedure: CT - ANGIO ABDOMEN/PELVIS W CPT Code: Final Report FULL RESULT: EXAM: CT ANGIOGRAM ABDOMEN AND PELVIS WITH CONTRAST EXAM DATE: 09/18/2019 02:33 PM. CLINICAL HISTORY: Abdomen pain, history of left renal infarct. Upper abdominal pain. COMPARISONS: ABDOMEN/PELVIS W/ 09/10/2019 8:51 PM. TECHNIQUE: Routine helical CT angiogram imaging was performed through the abdomen and pelvis in the arterial phase and without contrast. IV contrast: OPTI-320 90 mL. Enteric contrast: No. Reconstructions: Coronal, sagittal, and 3D MIP reconstructions. In accordance with CT protocol optimization, one or more of the following dose reduction techniques were utilized for this exam: automated exposure control, adjustment of mA and/or KV based on patient size, or use of iterative reconstructive technique. FINDINGS: Vasculature: Distal descending thoracic aorta is normal in caliber. Abdominal aorta at the level of the SMA measures 2 cm. Distal abdominal aorta proximal to the aortic bifurcation measures 1.6 cm. Abdominal aorta is widely patent. Mild atheromatous disease. Celiac artery is patent. SMA is widely patent. NIKKI is patent although distal to its origin there is irregular low-density linear area within its lumen which may be due to a short segment dissection or focal irregular atheromatous disease seen best on axial images 92-104. Lobular contour of the more distal vessel and possibly mild stenosis as well as irregular atheromatous plaque is noted. Distal to this segment there is limited opacification of contrast to the branch vessel from the NIKKI which extends to the descending colon. Splenic artery and hepatic artery are patent. Right renal artery is widely patent. Slightly lobular contour of the distal right renal artery. Note that some motion limits detail. Left renal artery is widely patent. There is slight lobular contour of the upper pole left renal artery possibly with mild focal atheromatous disease. The renal artery branches can be seen into each kidney into the parenchyma. Iliac and femoral vessels are patent. Mild atheromatous disease is seen in the iliac arteries. No severe stenosis. Patency of the renal veins confirmed on the prior study. There is maybe edema and slight stranding surrounding the inferior mesenteric artery. Lung Bases: Heart is enlarged. Bibasilar scar/atelectasis. Small hiatal hernia. Abdominal Solid Organs: No hepatic or splenic lesions. The spleen is not enlarged. Adrenals and pancreas are unremarkable on these arterial phase images. The gallbladder is unremarkable. Right kidney enhances homogeneously except for a small focus inferiorly with a may be slight decrease in attenuation. Some motion limits detail. There is decreased enhancement seen along the upper lateral although largely in the lower pole of the left kidney which is new particularly in the lower pole. There is left perinephric stranding. No hydronephrosis or nephrolithiasis. Left renal cyst is again seen. Peritoneal Cavity: Stomach is nondistended. No bowel obstruction. No free air. Mild stranding along the origin of the NIKKI. Small volume of stool in the colon. Lack of distention versus mild thickening of a segment of the descending colon. Diverticulosis of the distal colon. No diverticulitis. No free air. No enlarged retroperitoneal or mesenteric lymph nodes. Pelvic Organs: Urinary bladder is mildly distended and unremarkable. No adnexal masses. No pelvic adenopathy. Bones: Degenerative changes of the lower thoracic and lumbar spine. Grade 1 anterolisthesis of L4 on L5. Dextroscoliosis of the lumbar spine. Degenerative changes of both hip joints. Lumbar facet arthropathy. Other: None. IMPRESSION: 1. No evidence of abdominal aortic aneurysm, stenosis or occlusion. Patent celiac artery, SMA and NIKKI. 2. Linear low density in the NIKKI extending from just distal to its origin into a branch vessel which extends to the left colon. Findings may represent a short segment dissection versus irregular atheromatous disease, a component which causes stenosis at the origin of the branch vessel which extends to the descending colon. Lack of opacification of the distal aspect of the NIKKI branch which extends to the descending colon which may be due to acute occlusion, limited flow or changes related to stenosis. The NIKKI is larger in size in comparison to the recent study from 09/10/2019. 2. Patent renal arteries bilaterally. No occlusion or severe stenosis. 3. Evolving segments of decreased attenuation throughout the upper and lower pole of the kidney consistent with evolving infarcts with more extensive involvement of the lower pole of the left kidney compared to 09/10/2019. 4. Mild thickening of the descending colon suggested although not definitive and limited in detail due to lack of distention. No other areas of bowel wall thickening are seen on these arterial enhanced images. 5. Cardiomegaly. RADIA
[2019-09-18] MEDS ORDERED: oxyCODONE 5 MG TABLET PO STA (16:43)
[2019-09-18 18:06] VITALS: BP 127/82
== END 2019-09-18 17:43 | disposition home or self-care (01) ==
LOC: ED 12:13
DX: N28.0 Ischemia and infarction of kidney (principal); K55.1 Chronic vascular disorders of intestine; N30.00 Acute cystitis without hematuria; F03.90 Unspecified dementia, unspecified severity, without behavioral disturbance, psychotic disturbance, mood disturbance, and anxiety; Z79.01 Long term (current) use of anticoagulants; Z85.3 Personal history of malignant neoplasm of breast
CPT/HCPCS: 36415; 74174; 80053; 81001; 83605; 83690; 84484; 85025; 93005; 96361; 96365; 96375; 99283; 99284; A9270; J7040; Q9967; 81003; 87086

== ENCOUNTER 2021-07-17 00:23 | Inpatient (IN) | payer MEDICARE, OTHER ==
[2021-07-17 00:50] LABS: BILIRUBIN,URINE NEGATIVE (NEGATIVE); GLUCOSE, URINE (UA) NEGATIVE (NEGATIVE); KETONES,URINE (UA) TRACE mg/dL (NEGATIVE); LEUKOCYTE ESTERASE, URINE NEGATIVE (NEGATIVE); NITRITE,URINE NEGATIVE (NEGATIVE); OCCULT BLOOD,URINE NEGATIVE (NEGATIVE); PH,URINE 6.5 PH (5.0-7.5); PROTEIN,URINE NEGATIVE (NEGATIVE); UROBILINOGEN,URINE 1 (NORMAL) E.U./dL (NORMAL)
[2021-07-17 00:51] LABS: CLARITY,URINE CLEAR (CLEAR)
[2021-07-17 00:56] LABS: BASOPHILS % (AUTO) 0.2 %; EOSINOPHILS # (AUTO) 0.1 10^3/uL (0.0-0.7); HGB - HEMOGLOBIN 13.6 g/dL (12.0-16.0); LYMPHOCYTES # (AUTO) 1.6 10^3/uL (1.5-3.5); MEAN CORPUSCULAR HEMOGLOBIN 32.2 pg (27.0-31.0); MEAN CORPUSCULAR HGB CONC 33.2 g/dL (32.0-36.0); MEAN CORPUSCULAR VOLUME 96.9 fL (81.0-99.0); MEAN PLATELET VOLUME 8.8 fL (7.9-10.8); MONOCYTES # (AUTO) 0.5 10^3/uL (0.0-1.0); MONOCYTES % (AUTO) 6.4 %; NEUTROPHILS # (AUTO) 6.1 10^3/uL (1.5-6.6); NEUTROPHILS % (AUTO) 73.2 %; PLT - PLATELET COUNT 218 10^3/uL (130-450); RED BLOOD COUNT 4.23 10^6/uL (4.20-5.40); RED CELL DISTRIBUTION WIDTH 13.1 % (12.0-15.0); WHITE BLOOD COUNT 8.3 x10^3/uL (4.8-10.8)
[2021-07-17 01:08] LABS: ALBUMIN 4.2 g/dL (3.2-5.5); ALBUMIN/GLOBULIN RATIO 1.1 (1.0-2.2); CALCIUM 9.1 mg/dL (8.5-10.3); CREATININE 0.8 mg/dL (0.4-1.0); POTASSIUM 3.8 mmol/L (3.5-5.0); TOTAL PROTEIN 7.9 g/dL (6.7-8.2)
--- NOTE | 2021-07-17 01:37 | ED Physician Documentation ---
PD HPI ABD PAIN - Stated complaint Stated Complaint: ABD PX - Chief complaint Chief Complaint: Abd Pain - History obtained from History obtained from: Patient - History of Present Illness Timing - onset: Today Timing - details: Abrupt onset, Waxing and waning Pain level now: 7 Quality: Pain Location: RUQ, Epigastric, LUQ Improved by: Other (nothing) Worsened by: Other (no exacerbating factors) Associated symptoms: No: Fever, Nausea, Vomiting, Diarrhea, Constipation, Melena, Hematochezia Recently seen: Not recently seen - Additional information Additional information: c/o abdominal pain across upper abdomen. she says this started earlier today but she cannot provide further details; this is likely due to dementia, with many of her answers during HPI/ROS being "I don't know" Review of Systems Unable to obtain: Dementia (limited ROS due to dementia; she seems unsure of many of her answers that aren't regarding her current symptoms, and often answers "I don't know" when asked about previous symptoms) Constitutional: denies: Fever, Chills, Sweats Cardiac: denies: Chest pain / pressure Respiratory: denies: Dyspnea, Cough GI: reports: Abdominal Pain. 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 : None HEENT: None Psych: None Musculoskeletal: None Derm: None - Past Surgical History Past Surgical History: Yes /DIRECTOR OF TEACHER EDUCATION: section, Mastectomy - Present Medications Home Medications: Ambulatory Orders Medication Instructions Recorded Confirmed Apixaban [Eliquis] 5 mg PO BID #60 tablet 09/11/19 Apixaban [Eliquis] 10 mg PO BID 7 Days #28 tablet 09/11/19 Donepezil [Aricept] 5 mg PO QPM 09/11/19 09/11/19 Memantine HCl [Namenda] 10 mg PO DAILY 09/11/19 09/11/19 Promethazine [Phenergan] 12.5 mg PO Q6H PRN #10 tab 09/18/19 cephALEXin [Keflex] 500 mg PO Q6H #28 capsule 09/18/19 oxyCODONE [Roxicodone] 2.5 - 5 mg PO Q6H PRN #10 tablet 09/18/19 - Allergies Allergies/Adverse Reactions: Allergies Allergy/AdvReac Type Severity Reaction Status Date / Time No Known Drug Allergies Allergy Verified 07/17/21 00:33 - Social History Does the pt smoke?: No Smoking Status: Never smoker Does the pt drink ETOH?: No Does the pt have substance abuse?: No - Immunizations Immunizations are current?: Yes - POLST Patient has POLST: No POLST Status: Full Code PD ED PE NORMAL - Vitals Vital signs reviewed: Yes - General General: Well developed/nourished, Other (appears uncomfortable, continuously massaging her upper abdomen) - HEENT HEENT: Moist mucous membranes - Neck Neck: Supple, no meningeal sign - Cardiac Cardiac: RRR, No murmur - Respiratory Respiratory: No respiratory distress, Clear bilaterally - Abdomen Abdomen: Soft, Non distended - Back Back: No CVA TTP - Derm Derm: Normal color, Warm and dry - Extremities Extremities: No edema - Neuro Eye Opening: Spontaneous Motor: Obeys Commands Verbal: Confused GCS Score: 14 PD ED PE EXPANDED - Abdomen Abdomen: Tender to palpation, Epigastric, Periumbilical, RLQ, Suprapubic, LLQ. No: Rebound, Guarding Results - Vitals Vitals: Vital Signs - 24 hr 07/17/21 07/17/21 07/17/21 00:27 00:33 02:33 Temperature 36 C L 36.5 C Heart Rate 84 84 88 Respiratory 18 18 16 Rate Blood Pressure 133/84 H 133/84 H 126/89 H O2 Saturation 99 99 100 07/17/21 04:00 Temperature 36.5 C Heart Rate 86 Respiratory 16 Rate Blood Pressure 131/91 H O2 Saturation 99 Oxygen O2 Source Room air - Labs Labs: Laboratory Tests 07/17/21 07/17/21 07/17/21 00:40 00:49 00:49 WBC 8.3 RBC 4.23 Hgb 13.6 Hct 41.0 MCV 96.9 MCH 32.2 H MCHC 33.2 RDW 13.1 Plt Count 218 MPV 8.8 Neut # (Auto) 6.1 Lymph # (Auto) 1.6 [place] # (Auto) 0.5 Eos # (Auto) 0.1 Baso # (Auto) 0.0 Absolute Nucleated RBC 0.00 Nucleated RBC % 0.0 Sodium 134 L Potassium 3.8 Chloride 96 L Carbon Dioxide 27 Anion Gap 11.0 BUN 24 H Creatinine 0.8 Estimated GFR (MDRD) 69 L Glucose 124 H Calcium 9.1 Total Bilirubin 1.0 AST 23 ALT 16 Alkaline Phosphatase 58 Total Protein 7.9 Albumin 4.2 Globulin 3.7 Albumin/Globulin Ratio 1.1 Lipase 27 Urine Color YELLOW Urine Clarity CLEAR Urine pH 6.5 Ur Specific [place] 1.020 Urine Protein NEGATIVE Urine Glucose (UA) NEGATIVE Urine Ketones TRACE Urine Occult Blood NEGATIVE Urine Nitrite NEGATIVE Urine Bilirubin NEGATIVE Urine Urobilinogen 1 (NORMAL) Ur Leukocyte Esterase NEGATIVE Ur Microscopic Review NOT INDICATED Urine Culture Comments NOT INDICATED - Rads (name of study) CT A/P with IV contrast Radiology: Prelim report reviewed, See rad report PD MEDICAL DECISION MAKING - ED course Complexity details: reviewed old records, reviewed results, re-evaluated patient, considered differential, d/w patient ED course: presents with abdominal pain, indicates it is across upper abdomen although on exam it is most pronounced across lower abdomen. Unremarkable blood test results and UA. CT is interpreted by radiology as "bowel thickening hyperemia of the mucosa and probable strictures involving segments of the distal small bowel including the terminal ileum with fluid-filled loops of mildly distended mid small bowel just proximal findings are concerning for both active and stenotic phases of inflammatory bowel disease with an obstructing component " She is given 30mg IV toradol early in ED stay and on reevaluation, after test resulted (including CT), she is in NAD and smiling, no longer clutching at abdomen. She seems to not have adequate recall when I ask her if she is feeling better, worse, or same compared to when I had first evaluated her earlier . On reexam, she has only mild TTP that is limited to periumbilical area. Given her concerning CT findings, plan is to admit for observation and further testing. D/W Dr. Patton, will admit to hospitalist service. Departure - Departure Disposition: ED Place in Observation Clinical Impression: Abdominal pain Qualifiers: Abdominal location: generalized Qualified Code(s): R10.84 - Generalized abdominal pain Condition: Good Discharge Date/Time: 07/17/21 05:02
[2021-07-17] MEDS ORDERED: KETOROLAC 30 MG/ML VIAL IVP STA (01:57)
[2021-07-17] MEDS ORDERED: IOVERSOL 320 100 ML VIAL IVP ONE ×2 (02:15→07:27)
[2021-07-17] MEDS: IOVERSOL 320 100 ML VIAL IVP ONE ×2 (02:49→11:57)
[2021-07-17] MEDS ORDERED: ONDANSETRON ODT 4 MG TABLET TL PRN (04:38)
--- NOTE | 2021-07-17 04:45 | HISTORY & PHYSICAL EXAMINATION ---
Chief Complaint - Chief Complaint Chief Complaint: abd pain History of Present Illness - Admitted From Admitted From:: home - History Obtained From Records Reviewed: [facility] History obtained from: Dr. Vallejo Exam Limitations: dementia - History of Present Illness HPI Comment/Other: This is a 81-year-old female who was admitted in August 2019 for abdominal pain and now presents again with abdominal pain. 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 She has no previous history of arrhythmias or valvular heart disease. At that time an echocardiogram had left ventricular systolic function normal at 65 to 70%. Left atrial volume index and right atrial volume index were normal. No valvular heart disease. She was treated with anticoagulants in the form of 3 months of apixaban and sent home. She now returns with recurrence of sharp upper abdominal pain that began earlier in the evening. She did have vomiting 3 hours after eating dinner. There is no diarrhea, fever, chills, change in bowel habits. There is no radiation of the pain. Limiting factor the history is that of dementia where her answer frequently is "I do not know". However she is alert and oriented to person place and time. She cannot tell me when her last bowel movement was. She also thinks she is passing gas but is not sure. Blood pressure 133/84. Heart rate 84. Respirations 18. 99% on room air. CT of the abdomen has possible SMA ischemia but the SMA appears patent. 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 Labs are essentially normal. White cell count is normal. We are asked to place the patient observation for possible episode of another embolic phenomena with ischemic bowel. 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 She smiles and says "I do not know" Living arrangement: At home Living Situation: With spouse/s.o. Social History Notes: She has never smoked. Drinks occassionally. No illicit drug use - Substance History Use: Uses substance without health or social issues: NONE Abuse: Recurrent use of substance despite neg consequences: NONE Dependence: Experiences withdrawal or developed tolerances: NONE - POLST Patient has POLST: No POLST Status: Full Code Meds/Allgy - Home Medications Home Medications: Ambulatory Orders Medication Instructions Recorded Confirmed Donepezil [Aricept] 5 mg PO QPM 09/11/19 07/17/21 Memantine HCl [Namenda] 10 mg PO DAILY 09/11/19 07/17/21 - Allergies Allergies/Adverse Reactions: Allergies Allergy/AdvReac Type Severity Reaction Status Date / Time No Known Drug Allergies Allergy Verified 07/17/21 00:33 Review of Systems - Constitutional Constitutional: reports: Fatigue, Poor appetite. denies: Fever, Chills, Malaise, Weakness, Diaphoresis, Night sweats, Weight gain, Weight loss - Eyes Eyes: reports: Vision loss (chronic w age). denies: Pain, Irritation - Ears, Nose & Throat Ears, Nose & Throat: denies: Tinnitus, Vertigo, Sore throat, Hoarseness - Cardiovascular Cariovascular: denies: Irregular heart rate, Palpitations, Chest pain, Edema, Sy ncope, Exertional dyspnea, Decr. exercise tolerance - Respiratory Respiratory: denies: Cough, Sputum production, Wheezing, SOB at rest, SOB with exertion - Gastrointestinal Gastrointestinal: reports: Abdominal pain, Vomiting (once), Poor appetite. denies: Change in bowel habits, Rectal bleeding, Black stools, Bloody stools, Nausea - Genitourinary Genitourinary: reports: Incontinence (sometimes). denies: Dysuria, Frequency, Urgency - Musculoskeletal Musculoskeletal: reports: Joint pain (mild and chronic w age). denies: Muscle pain, Back pain - Integumentary Integumentary: denies: Rash, Pruritis, Lesions - Neurological Neurological: denies: General weakness, Focal weakness, Headache, Dizziness - Psychiatric Psychiatric: denies: Depression, Anxiety, Suicidal, Hallucinations - Endocrine Endocrine: denies: Polyuria, Polydypsia, Polyphagia - Hematologic/Lymphatic Hematologic/Lymphatic: denies: Anemia, Bruising, Blood clots Prior Level of Functionality: Lives in her own home with her . Able to feed self, dress self, but needs prompting and supervision sometimes. Does not cook anymore. Follows prompts. Does not use durable medical equipment. Exam - Vital Signs Reviewed Vital Signs: Yes Vital Signs: Vital Signs x48h Temp Pulse Resp BP Pulse Ox 07/17/21 04:00 36.5 C 86 16 131/91 H 99 07/17/21 02:33 88 16 126/89 H 100 07/17/21 00:33 36.5 C 84 18 133/84 H 99 07/17/21 00:27 36 C L 84 18 133/84 H 99 - Physical Exam General Appearance: positive: Alert, Mild distress, Other (Very pleasant alert elderly lady, who thinks she is here because her tummy hurts, but she is not sure) Eyes Bilateral: positive: PERRL, EOMI ENT: positive: No signs of dehydration Neck: positive: No JVD. negative: Stiff neck Respiratory: positive: No respiratory distress. negative: Wheezes, Rales, Rhonchi Cardiovascular: positive: Regular rate & rhythm. negative: Gallop/S4, Friction rub Abdomen: positive: Tenderness (Both upper quadrants, epigastrium. No rebound or guarding. No masses. Bowel sounds present.) Skin: positive: Warm, Dry Extremities: positive: Full ROM, No pedal edema Neurologic/Psychiatric: positive: Oriented x3 (But keeps on reiterating that she has memory loss. Cannot remember a lot of past events, cannot remember if she was sick yesterday, momentarily forgets her address but no she lives in [facility]), CN's nml (2-12), Motor nml Conclusion/Plan - Problem List (1) Left sided abdominal pain Conclusion/Plan: she has a previous hx Of renal infarct. As such was treated as an embolic ph enomena but no etiology of that found. She returned to the emergency room a week after she was seen last time because her abdominal pain was continuing. She was treated as a urinary tract infection and sent home. With this visit, although she complains of abdominal pain, it seems to be controlled, and not agonizing. No peritoneal findings. Her abdominal pain is not out of proportion to exam. CT scan suggest possible segmental ischemia of the SMA distribution but she is not that tender. Nor does she have a white cell count or fever. Assessment/plan Serial exams Repeat labs including lactic acid and sed rate Consider surgical consult if pain worsens. CT angiogram to assess arterial anatomy. (2) Dementia Conclusion/Plan: She seems easily prompted. Follows commands. No notice of behavioral issues. At this time I am holding off on her some of her medications since they can induce nausea. Qualifiers: Dementia type: Alzheimer's Dementia behavioral disturbance: without behavioral disturbance - Lab Results Lab results reviewed: Yes Fish Bones: 07/17/21 11:51 07/17/21 11:51 - Diagnostic Imaging Results Diagnostic Imaging Results: positive: Prelim report reviewed Diagnostic Imaging Results Comments: Wall thickening hyperemia of the mucosa and probable stricture involving segments of the distal small bowel including the terminal ileum with fluid-f illed loops of mildly distended in the mid small bowel just proximal. Findings concerning for active and stenotic phases of inflammatory bowel disease with an obstructing component. These were not demonstrated on CT abdomen and pelvis dated September 18, 2019. Portal vein, superior mesenteric vein, celiac trunk, superior mesenteric artery and inferior mesenteric artery all appear patent on this non-CTA study. CTA August 2019 demonstrated renal infarct in the left kidney and embolic event considered then. There is no free air, abscess, pneumatosis intestinalis. Portal vein and superior mesenteric vein are patent. - EKG Results EKG Interpreted Independently: No Core Measures - Anticipated LOS I expect patient to be DC'd or transferred within 96 hours.: Yes - DVT/VTE - Prophylaxis VTE/DVT Device ordered at admit?: Yes
[2021-07-17] MEDS: SODIUM CHLORIDE 0.9% 1,000 ML IV SCH ×2 (05:43→18:50)
[2021-07-17 06:29] LABS: BASOPHILS % (AUTO) 0.4 %; EOSINOPHILS % (AUTO) 0.2 %; HCT - HEMATOCRIT 40.7 % (37.0-47.0); HGB - HEMOGLOBIN 13.5 g/dL (12.0-16.0); LYMPHOCYTES # (AUTO) 1.4 10^3/uL (1.5-3.5); LYMPHOCYTES % (AUTO) 17.1 %; MEAN CORPUSCULAR HEMOGLOBIN 31.5 pg (27.0-31.0); MEAN CORPUSCULAR HGB CONC 33.2 g/dL (32.0-36.0); MEAN CORPUSCULAR VOLUME 95.1 fL (81.0-99.0); MEAN PLATELET VOLUME 8.9 fL (7.9-10.8); MONOCYTES # (AUTO) 0.3 10^3/uL (0.0-1.0); MONOCYTES % (AUTO) 3.9 %; NEUTROPHILS # (AUTO) 6.5 10^3/uL (1.5-6.6); PLT - PLATELET COUNT 217 10^3/uL (130-450); RED BLOOD COUNT 4.28 10^6/uL (4.20-5.40); RED CELL DISTRIBUTION WIDTH 13.1 % (12.0-15.0); WHITE BLOOD COUNT 8.4 x10^3/uL (4.8-10.8)
[2021-07-17 06:35] LABS: CREATININE 0.8 mg/dL (0.4-1.0); POTASSIUM 4.2 mmol/L (3.5-5.0)
[2021-07-17] MEDS ORDERED: IOVERSOL 320 50 ML VIAL ONE (07:27)
--- NOTE | 2021-07-17 07:58 | Ultrasound Report ---
PROCEDURE: Retroperitoneal INDICATIONS: abn CT abd/pelvis and this recommended TECHNIQUE: Real-time scanning was performed of the kidneys and bladder, with image documentation. COMPARISON: Correlation is made with prior abdomen and pelvis CT, 07/17/2021. FINDINGS: Kidneys: Kidneys are normal in size. Right kidney measures 8.8 cm long; left kidney measures 8.8 cm long. Right renal cortical thickness is 1.6 cm; left renal cortical thickness is 1.3 cm. No solid masses, hydronephrosis, or nephrolithiasis. At the inferior pole of the left kidney, there is a simple, anechoic cyst that measures 17 x 16 x 20 mm. Bladder: The prevoid bladder volume is 86 cc. The post void bladder measurement was not obtained, as the patient was unable to void. Both ureteral jets can be seen. Miscellaneous: No free abdominal fluid. This study is limited by body habitus. IMPRESSION: Simple cyst confirmed at the inferior pole of the left kidney. Note: Concordant preliminary findings given by the telephone triage nurse upon the completion of the examination to the charge nurse. Note: No significant discrepancy from the preliminary report. Reviewed by: Aleksey Howard MD on 07/17/2021 6:56 AM [facility] Approved by: Aleksey Howard MD on 07/17/2021 6:56 AM [facility] Station ID: [id number]
[2021-07-17] MEDS: ACETAMINOPHEN 325 MG TABLET PO PRN ×2 (08:10→23:15)
[2021-07-17] MEDS: SODIUM CHLORIDE FLUSH 0.9% 10 ML SYRINGE IVP SCH ×3 (08:12→23:35)
--- NOTE | 2021-07-17 09:10 | PROVIDER PROGRESS NOTE ---
Hospitalist Cross-cover Note - Cross-Cover Note Cross-Cover Note: Pt was taken to CT earlier this morning and tolerated the procedure well. She was found to have a small bowel obstruction and Dr. Minaya from General Surgery was consulted. Nursing placed an NG tube for bowel decompression per his recommendations and there was 100mL immediate return of brownish red output. CXR obtained, on our overread the tube is in correct position. She is NPO and IVF are currently running. she continues to experience abdominal pain but it is not worse than earlier today and she is able to rest in bed. Her vitals have remained stable. She denies dyspnea, nausea, vomiting, fevers or chills. Of note her CT Angio Abdomen/pelvis did not show any significant arterial abormalities, perforation or abscess.
--- NOTE | 2021-07-17 09:14 | CT Report ---
PROCEDURE: Abdomen/Pelvis W INDICATIONS: abdominal pain CONTRAST: IV CONTRAST: Optiray 320 ml: 80 PO CONTRAST: *NO PO CONTRAST TECHNIQUE: After the administration of IV contrast, 5 mm thick sections acquired from the diaphragms to the symp hysis. 5 mm thick coronal and sagittal reformats were acquired. For radiation dose reduction, the f ollowing was used: automated exposure control, adjustment of mA and/or kV according to patient size. COMPARISON: 09/18/2019. Ultrasound 09/16/2020. FINDINGS: Image quality: Excellent. ABDOMEN: Lung bases: Lung bases are clear. Heart size is normal. Solid organs: Liver and spleen are normal in size and enhancement. Gallbladder wall does not appear thickened. Biliary system is non dilated. Pancreas enhances normally. No adrenal nodules. Kidneys demonstrate normal size and enhancement, without hydronephrosis. At the inferior pole of the left kidney, there is a cyst seen that measures 10 Hounsfield units and 1.7 cm. There is an accessor y left renal artery which emanates from the left common iliac artery. Peritoneum and bowel: The proximal small bowel loops are dilated and fluid-filled, measuring up to 2 .6 cm. There is a transition point seen within the midabdomen, as on series 6 image 12, with thickene d, hyperenhancing small bowel seen distal to this point. Also on series 6 image 12, there is an addit ional transition point, yet with incomplete obstruction. No findings of pneumatosis can be seen. Negative for abscess. No significant colonic abnormality is seen. Nodes and vessels: No retroperitoneal or mesenteric adenopathy by size criteria. Aorta and inferior vena cava are normal in size. Miscellaneous: No ventral hernias. PELVIS: Genitourinary: Bladder wall thickness is normal. Miscellaneous: No inguinal hernias or adenopathy. Bones: No suspicious bony lesions. No vertebral body compression fractures. Mild levoconvex scolio tic curvature is seen. Age-appropriate degenerative changes are seen. IMPRESSION: Small bowel obstruction, with a transition point seen within the inferior mid abdomen. Just proximal to this transition point, there is incompletely obstructive additional transition point . Distal to the transition point, the small bowel appears thickened and hyperemic. Please consider infl ammatory bowel disease. Ischemia is possible, considered to be less likely. At the inferior pole of the left kidney, there is a simple appearing cyst, which is confirmed with CT subsequently performed ultrasound. 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 Reviewed by: Aleksey Howard MD on 07/17/2021 8:12 AM [facility] Approved by: Aleksey Hwoard MD on 07/17/2021 8:12 AM [facility] Station ID: [id number]
--- NOTE | 2021-07-17 09:41 | CT Report ---
PROCEDURE: ANGIO ABDOMEN/PELVIS W INDICATIONS: ischemic colitis CONTRAST: IV CONTRAST: Optiray 320 ml: 90 PO CONTRAST: *NO PO CONTRAST TECHNIQUE: After the administration of intravenous contrast, 2 and 5 mm sections acquired from the diaphragm to the iliac crests. 3-dimensional maximum intensity projection (MIP) coronal and sagittal reformats, a nd/or 3-dimensional volume rendering reformatting was then performed. For radiation dose reduction, the following was used: automated exposure control, adjustment of mA and/or kV according to patient size. COMPARISON: Standard protocol abdomen and pelvis CT, 07/17/2021. Prior abdominal angiogram, 0. FINDINGS: Image quality: Excellent. Extravascular tissues: Lung bases are clear. Right axillary clips are seen. Heart size is normal. Liver and spleen are normal in size and enhancement. Gallbladder wall does not appear thickened. B iliary system is non dilated. Pancreas enhances normally. No adrenal nodules. Kidneys are normal i n size and enhancement, without hydronephrosis. At the inferior pole of the left kidney, the nonenhan cing simple cyst can be seen. Areas of focal cortical volume loss can be seen involving both kidneys , as before. 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 Dilated fluid-filled loops of small bowel are again seen, which measure up to 3 cm. There is a transi tion point seen within the right mid abdomen, which is best demonstrated on series 7 image 20. Distal to this point, there is thickened, inflamed, hyperenhancing small bowel, which is largely decompress ed. Just proximal to the primary transition point, there is an additional incomplete transition point , as seen on series 7 image 24, which is seen lateral to the primary transition point. No free fluid or air. No findings of pneumatosis intestinalis can be seen. No retroperitoneal or mesenteric adenopathy. No ventral hernias. No suspicious bony abnormalities. No vertebral body compression fractures. Abdominal aorta: The aorta demonstrates normal caliber, without stenosis or aneurysm. The visualized iliac systems and arteries of the proximal lower extremities are likewise within normal limits. Mesenteric arteries: The celiac axis, SMA, and NIKKI demonstrate no significant abnormality. On the pr ior study dated 09/18/2019, there is a partial filling defect seen within the NIKKI. This is no longer s een. Renal arteries: Single renal arteries are seen in the setting, which are fully patent. IMPRESSION: The previously seen filling partial defect within the NIKKI is no longer seen. No significant acute arterial abnormality is seen. Continued small bowel obstruction, with a transition point seen within the right midabdomen. Distal t o the transition point, there is thickened, inflamed small bowel, which is suggestive of inflammatory bowel disease. An additional transition point can be seen proximal to the primary transition point, the appearance of a stricture. No findings of perforation or abscess can be seen. 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 Incidental note is made of: Right axillary clips Simple appearing left renal cyst Reviewed by: Aleksey Howard MD on 07/17/2021 8:40 AM [facility] Approved by: Aleksey Howard MD on 07/17/2021 8:40 AM [facility] Station ID: [id number]
[2021-07-17] MEDS: ENOXAPARIN 40 MG/0.4 ML SYRINGE SUBQ SCH (10:30)
[2021-07-17] MEDS: oxyCODONE 5 MG TABLET PO PRN (10:41)
[2021-07-17 12:03] LABS: BASOPHILS % (AUTO) 0.2 %; EOSINOPHILS % (AUTO) 0.5 %; HCT - HEMATOCRIT 41.9 % (37.0-47.0); HGB - HEMOGLOBIN 13.8 g/dL (12.0-16.0); LYMPHOCYTES # (AUTO) 1.2 10^3/uL (1.5-3.5); LYMPHOCYTES % (AUTO) 15.3 %; MEAN CORPUSCULAR HEMOGLOBIN 31.4 pg (27.0-31.0); MEAN CORPUSCULAR HGB CONC 32.9 g/dL (32.0-36.0); MEAN CORPUSCULAR VOLUME 95.4 fL (81.0-99.0); MEAN PLATELET VOLUME 8.8 fL (7.9-10.8); MONOCYTES # (AUTO) 0.4 10^3/uL (0.0-1.0); MONOCYTES % (AUTO) 4.6 %; NEUTROPHILS # (AUTO) 6.4 10^3/uL (1.5-6.6); NEUTROPHILS % (AUTO) 79.2 %; PLT - PLATELET COUNT 217 10^3/uL (130-450); RED BLOOD COUNT 4.39 10^6/uL (4.20-5.40); WHITE BLOOD COUNT 8.1 x10^3/uL (4.8-10.8)
[2021-07-17 12:12] LABS: CALCIUM 8.8 mg/dL (8.5-10.3); CREATININE 0.8 mg/dL (0.4-1.0); POTASSIUM 3.9 mmol/L (3.5-5.0)
--- NOTE | 2021-07-17 12:32 | CONSULTATION NOTE ---
Referring Provider Name of Referring Provider:: Fiona NESBITT Consult Date: 07/17/21 Chief Complaint - Chief Complaint Chief Complaint: abdominal pain History of Present Illness - Admitted From Admitted From:: home - History Obtained From History obtained from: patient - History of Present Illness HPI Comment/Other: This 81-year-old female was admitted this morning with complaint of abdominal pain. 1 episode of nausea and vomiting. She had a bowel movement this morning in the hospital. 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 CT angiogram of the abdomen and pelvis done showed possible stricturing or thickening of the small bowel but no evidence of mesenteric artery blockage. Her previous abdominal surgery was section. No previous history of bowel obstruction. She has a history of bilateral mastectomy for breast cancer. Patient has no history or family history of inflammatory bowel disease. She is not familiar with Crohn's disease or ulcerative colitis. 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 Drinks occassionally. No illicit drug use - POLST Patient has POLST: No POLST Status: Full Code Meds/Allgy - Home Medications Home Medications: Ambulatory Orders Medication Instructions Recorded Confirmed Donepezil [Aricept] 5 mg PO QPM 09/11/19 09/11/19 Memantine HCl [Namenda] 10 mg PO DAILY 09/11/19 09/11/19 - Allergies Allergies/Adverse Reactions: Allergies Allergy/AdvReac Type Severity Reaction Status Date / Time No Known Drug Allergies Allergy Verified 07/17/21 00:33 Review of Systems - Gastrointestinal Gastrointestinal: reports: Other (She denies eating anything unusual within the past 1 or 2 days. She had a normal turkey dinner for Thanksgiving.) Exam - Vital Signs Reviewed Vital Signs: Yes Vital Signs: Vital Signs x48h Temp Pulse Pulse Pulse Resp BP Pulse Ox 07/17/21 11:28 37.1 C 88 16 119/77 100 07/17/21 07:31 36.7 C 77 16 122/88 H 100 07/17/21 05:58 36.7 C 97 18 100 07/17/21 05:39 36.7 C 97 18 144/71 H 100 - Physical Exam General Appearance: positive: No acute distress Eyes Bilateral: positive: Normal inspection ENT: positive: ENT inspection nml Neck: positive: Nml inspection Respiratory: positive: No respiratory distress Cardiovascular: positive: Regular rate & rhythm Peripheral Pulses: positive: 2+ Abdomen: positive: Other (Minimal distention. Mildly tender to palpation. Well- healed suprapubic midline scar with no hernia. No masses. No guarding or rebound.) Extremities: positive: No pedal edema Conclusion/Plan - Problem List (1) Abdominal pain Conclusion/Plan: No peritoneal signs currently. CT scan shows findings suggestive of a small bowel obstruction. No evidence for vascular compromise. Recommend standard management for small bowel obstruction with nasogastric tube, n.p.o. and will reassess tomorrow with possible Gastrografin small bowel foll ow-through if indicated. Qualifiers: Abdominal location: generalized Qualified Code(s): R10.84 - Generalized abdominal pain - Lab Results Lab results reviewed: Yes Fish Bones: 07/17/21 11:51 07/17/21 11:51 - Diagnostic Imaging Results Diagnostic Imaging Results: positive: Final report reviewed (Dilated loops of small bowel, no free fluid, no clear transition point.)
--- NOTE | 2021-07-17 12:41 | PHARMACY PROGRESS NOTE ---
- Best Possible Medication History Admit Date and Time: 07/17/21 0438 Processed by: Pharmacy Medication History completed: Yes Patient Interview: Pt interview ONLY source As the person ultimately responsible for medication therapy, providers are able to order a medication from an existing home medication list in [facility] via the "Reconcile Routine" prior to Confirmation of that medication by field technical support consultant. Such practice is discouraged except when the physician, in their clinical judgment, deems that a medical need exists for a medication without regard to previous use.
[2021-07-17] MEDS ORDERED: BENZOCAINE/MENTHOL LOZENGE MM PRN (13:54)
[2021-07-17] MEDS ORDERED: PHENOL THROAT SPRAY 177 ML MM PRN (13:54)
--- NOTE | 2021-07-17 14:45 | XRAY Report ---
PROCEDURE: Chest for Line Placement INDICATIONS: CHECK NG TUBE PLACEMENT COMMENTS: Check NG tube placement PRIORS: NONE TECHNIQUE: One view of the chest was acquired. COMPARISON: None FINDINGS: Surgical changes and devices: None. Lungs and pleura: No pleural effusions or pneumothorax. Lungs are clear. There is prominent inte rstitial markings. Mediastinum: Mediastinal contours appear normal. Heart size is normal. Bones and chest wall: No suspicious bony lesions. Overlying soft tissues appear unremarkable. IMPRESSION: 1. No acute abnormality of the chest. 2. Chronic interstitial prominence. Reviewed by: Caleb Greene on 07/17/2021 2:43 PM PST Approved by: Caleb Greene on 07/17/2021 2:43 PM PST Station ID: [id number]
[2021-07-17] MEDS: ONDANSETRON 4 MG/2 ML VIAL IVP PRN ×2 (15:59→23:35)
[2021-07-17] MEDS: MORPHINE 2 MG/ML CARPUJECT IVP PRN ×2 (16:06→23:35)
[2021-07-18] MEDS: SODIUM CHLORIDE 0.9% 1,000 ML IV SCH ×2 (05:50→19:40)
[2021-07-18 06:04] LABS: BASOPHILS % (AUTO) 0.3 %; EOSINOPHILS % (AUTO) 0.1 %; HCT - HEMATOCRIT 36.1 % (37.0-47.0); HGB - HEMOGLOBIN 11.9 g/dL (12.0-16.0); LYMPHOCYTES # (AUTO) 1.3 10^3/uL (1.5-3.5); LYMPHOCYTES % (AUTO) 19.1 %; MEAN CORPUSCULAR HEMOGLOBIN 31.6 pg (27.0-31.0); MEAN CORPUSCULAR VOLUME 95.8 fL (81.0-99.0); MEAN PLATELET VOLUME 8.9 fL (7.9-10.8); MONOCYTES # (AUTO) 0.5 10^3/uL (0.0-1.0); NEUTROPHILS # (AUTO) 4.9 10^3/uL (1.5-6.6); NEUTROPHILS % (AUTO) 72.4 %; PLT - PLATELET COUNT 202 10^3/uL (130-450); RED BLOOD COUNT 3.77 10^6/uL (4.20-5.40); RED CELL DISTRIBUTION WIDTH 13.3 % (12.0-15.0); WHITE BLOOD COUNT 6.7 x10^3/uL (4.8-10.8)
[2021-07-18 06:26] LABS: CALCIUM 7.9 mg/dL (8.5-10.3); CREATININE 0.8 mg/dL (0.4-1.0); POTASSIUM 3.8 mmol/L (3.5-5.0)
--- NOTE | 2021-07-18 07:28 | PROVIDER PROGRESS NOTE ---
Subjective - Prog Note Date Prog Note Date: 07/18/21 - Subjective Pt reports feeling: Improved Subjective: Reports she has no pain in her abdomen this morning and is feeling more comfortable. Was not able to tolerate oral pain meds last evening, reportedly had an episode of emesis after attempting to take Tylenol. Has not had a bowel movement since early yesterday morning. Denies nausea, vomiting and pain this morning. Reports she slept well overnight and is feeling slightly improved. Objective - Vital Signs/Intake & Output Reviewed Vital Signs: Yes Vital Signs: Vital Signs x48h Temp Pulse Resp BP Pulse Ox 07/17/21 23:38 36.3 C L 93 18 118/71 96 Intake & Output: Intake & Output 07/15/21 07/16/21 07/17/21 07/18/21 23:59 23:59 23:59 23:59 Intake Total 1280 955 Output Total 470 250 Balance 810 705 - Objective General Appearance: positive: No acute distress, Alert Eyes Bilateral: positive: Normal inspection, PERRL ENT: positive: ENT inspection nml, No signs of dehydration Neck: positive: Nml inspection Respiratory: positive: Chest non-tender, No respiratory distress, Breath sounds nml Cardiovascular: positive: Regular rate & rhythm, No murmur, No gallop Peripheral Pulses: 2+ Radial (R), 2+ Radial (L), 2+ Dorsalis pedis (R), 2+ Dorsalis pedis (L) Abdomen: positive: Non-tender, No organomegaly, No distention, Other (Hyperactive bowel tones in all quadrants) Skin: positive: Color nml, No rash, Warm, Dry Extremities: positive: Non-tender, Full ROM, Nml appearance, No pedal edema Neurologic/Psychiatric: positive: Oriented x3, CN's nml (2-12), Sensation nml, Mood/affect nml - Lab Results Fish Bones: 07/18/21 05:44 07/18/21 06:14 Other Labs: Lab Results x24hrs 07/18/21 07/18/21 07/17/21 Range/Units 06:14 05:44 11:51 WBC 6.7 (4.8-10.8) x10^3/uL RBC 3.77 L (4.20-5.40) 10^6/uL Hgb 11.9 L (12.0-16.0) g/dL Hct 36.1 L (37.0-47.0) % MCV 95.8 (81.0-99.0) fL MCH 31.6 H (27.0-31.0) pg MCHC 33.0 (32.0-36.0) g/dL RDW 13.3 (12.0-15.0) % Plt Count 202 (130-450) 10^3/uL MPV 8.9 (7.9-10.8) fL Neut # (Auto) 4.9 (1.5-6.6) 10^3/uL Lymph # (Auto) 1.3 L (1.5-3.5) 10^3/uL [place] # (Auto) 0.5 (0.0-1.0) 10^3/uL Eos # (Auto) 0.0 (0.0-0.7) 10^3/uL Baso # (Auto) 0.0 (0.0-0.1) 10^3/uL Absolute Nucleated RBC 0.00 x10^3/uL Nucleated RBC % 0.0 /100WBC Sodium 134 L (135-145) mmol/L Potassium 3.8 (3.5-5.0) mmol/L Chloride 103 (101-111) mmol/L Carbon Dioxide 21 (21-32) mmol/L Anion Gap 10.0 (6-13) BUN 21 H (6-20) mg/dL Creatinine 0.8 (0.4-1.0) mg/dL Estimated GFR (MDRD) 69 L (>89) Glucose 109 H (70-100) mg/dL Lactic Acid 1.4 (0.5-2.2) mmol/L Calcium 7.9 L (8.5-10.3) mg/dL 07/17/21 07/17/21 Range/Units 11:51 11:51 WBC 8.1 (4.8-10.8) x10^3/uL RBC 4.39 (4.20-5.40) 10^6/uL Hgb 13.8 (12.0-16.0) g/dL Hct 41.9 (37.0-47.0) % MCV 95.4 (81.0-99.0) fL MCH 31.4 H (27.0-31.0) pg MCHC 32.9 (32.0-36.0) g/dL RDW 13.0 (12.0-15.0) % Plt Count 217 (130-450) 10^3/uL MPV 8.8 (7.9-10.8) fL Neut # (Auto) 6.4 (1.5-6.6) 10^3/uL Lymph # (Auto) 1.2 L (1.5-3.5) 10^3/uL [place] # (Auto) 0.4 (0.0-1.0) 10^3/uL Eos # (Auto) 0.0 (0.0-0.7) 10^3/uL Baso # (Auto) 0.0 (0.0-0.1) 10^3/uL Absolute Nucleated RBC 0.00 x10^3/uL Nucleated RBC % 0.0 /100WBC Sodium 132 L (135-145) mmol/L Potassium 3.9 (3.5-5.0) mmol/L Chloride 96 L (101-111) mmol/L Carbon Dioxide 26 (21-32) mmol/L Anion Gap 10.0 (6-13) BUN 19 (6-20) mg/dL Creatinine 0.8 (0.4-1.0) mg/dL Estimated GFR (MDRD) 69 L (>89) Glucose 111 H (70-100) mg/dL Lactic Acid (0.5-2.2) mmol/L Calcium 8.8 (8.5-10.3) mg/dL - Diagnostic Imaging Diagnostic Imaging Results: positive: Final report reviewed Diagnostic Imaging Comments: 07/17 CTA Abdomen/Pelvis The previously seen filling partial defect within the NIKKI is no longer seen. No significant acute arterial abnormality is seen. continued small bowel obstruction, with a transition point seen within the right midabdomen. Distal to the transition point, there is thickened, inflamed small bowel, which is suggestive of inflammatory bowel disease. An additional transition point can be seen proximal to the primary transition point, the appearance of a stricture. no findings of perforation or abscess can be seen. 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 Incidental note made of: Right axillary clips Simple appearing left renal cyst 07/17 Abdomen/Pelvis CT Small bowel obstruction, with a transition point seen within the inferior mid abdomen. Just proximal to this transition point, there is incompletely obstructive additional transition point. Distal to the transition point, the small bowel appears thickened and hyperemic. Please consider inflammatory bowel disease. Ischemia is possible, considered to be less likely. At the inferior pole of the left kidney, there is a simple appearing cyst, which is confirmed wi th CT subsequently performed ultrasound. ABX Reporting Has patient been on IV antibiotics over the past 48 hours?: No Sepsis Event Note (H) - Evaluation Current Stage of Sepsis: Ruled out Assessment/Plan - Problem List (1) Small bowel obstruction Impression: Stable. Pt initially presented with left sided abdominal pain. She did not have peritoneal findings. CT and CTA of the abdomen and pelvis were obtained and revealed a small bowel obstruction. Her WBC has remained within normal limits and not elevated. Her vitals have remained stable, she has been afebrile. She was seen by General Surgery yesterday who recommended NG tube placement. It was placed with immediate return of 100mL brownish bloody output. She apppears to have had approximately 400mL output overnight. She did not tolerate oral medications overnight, immediately throwing up, so her medications are currently via IV. She has not had a bowel movement. This morning she reports she does not have any pain and her bowel tones are hyperactive. No pain noted with light and deep palpation to the abdomen. She was seen by Surgery and a PPI and Gastrogafin SBFT was ordered for further monitoring. -IV Protonix started -Small bowel follow through -Continue NG tube to low intermittent suction -NPO, continue IVF (2) Dementia Impression: She and her report a history of mild dementia. She gets pleasantly confused, often saying "I don't know". Easily prompted and able to follow com mands. Has not had any behavioral issues. Medications will remain held due to her nausea overnight when attempting Tylenol and known side effect of nausea with a few of her home meds. Qualifiers: Dementia type: Alzheimer's Dementia behavioral disturbance: without behavioral disturbance
[2021-07-18] MEDS: MORPHINE 2 MG/ML CARPUJECT IVP PRN ×4 (10:55→23:46)
[2021-07-18] MEDS: ENOXAPARIN 40 MG/0.4 ML SYRINGE SUBQ SCH (10:56)
[2021-07-18] MEDS: SODIUM CHLORIDE FLUSH 0.9% 10 ML SYRINGE IVP SCH ×4 (10:57→23:47)
--- NOTE | 2021-07-18 11:13 | PROVIDER PROGRESS NOTE ---
Subjective - General Admit Date: 07/17/21 Objective - Patient Data Vital Signs: Vital Signs x48h Temp Pulse Resp BP Pulse Ox 07/18/21 07:45 37.5 C 99 16 105/67 95 Weight: Weight 07/16/21 07/17/21 07/18/21 23:59 23:59 23:59 Weight (kg) 47 kg Intake & Output: Intake and Output Totals x24h 07/16/21 07/17/21 07/18/21 23:59 23:59 23:59 Intake Total 1280 955 Output Total 470 250 Balance 810 705 - Lab Results Lab Results: 07/18/21 05:44 07/18/21 06:14 Other Lab Results: Lab Results x24hrs 07/18/21 07/18/21 07/17/21 Range/Units 06:14 05:44 11:51 WBC 6.7 (4.8-10.8) x10^3/uL RBC 3.77 L (4.20-5.40) 10^6/uL Hgb 11.9 L (12.0-16.0) g/dL Hct 36.1 L (37.0-47.0) % MCV 95.8 (81.0-99.0) fL MCH 31.6 H (27.0-31.0) pg MCHC 33.0 (32.0-36.0) g/dL RDW 13.3 (12.0-15.0) % Plt Count 202 (130-450) 10^3/uL MPV 8.9 (7.9-10.8) fL Neut # (Auto) 4.9 (1.5-6.6) 10^3/uL Lymph # (Auto) 1.3 L (1.5-3.5) 10^3/uL [place]age # (Auto) 0.5 (0.0-1.0) 10^3/uL Eos # (Auto) 0.0 (0.0-0.7) 10^3/uL Baso # (Auto) 0.0 (0.0-0.1) 10^3/uL Absolute Nucleated RBC 0.00 x10^3/uL Nucleated RBC % 0.0 /100WBC Sodium 134 L (135-145) mmol/L Potassium 3.8 (3.5-5.0) mmol/L Chloride 103 (101-111) mmol/L Carbon Dioxide 21 (21-32) mmol/L Anion Gap 10.0 (6-13) BUN 21 H (6-20) mg/dL Creatinine 0.8 (0.4-1.0) mg/dL Estimated GFR (MDRD) 69 L (>89) Glucose 109 H (70-100) mg/dL Lactic Acid 1.4 (0.5-2.2) mmol/L Calcium 7.9 L (8.5-10.3) mg/dL 07/17/21 07/17/21 Range/Units 11:51 11:51 WBC 8.1 (4.8-10.8) x10^3/uL RBC 4.39 (4.20-5.40) 10^6/uL Hgb 13.8 (12.0-16.0) g/dL Hct 41.9 (37.0-47.0) % MCV 95.4 (81.0-99.0) fL MCH 31.4 H (27.0-31.0) pg MCHC 32.9 (32.0-36.0) g/dL RDW 13.0 (12.0-15.0) % Plt Count 217 (130-450) 10^3/uL MPV 8.8 (7.9-10.8) fL Neut # (Auto) 6.4 (1.5-6.6) 10^3/uL Lymph # (Auto) 1.2 L (1.5-3.5) 10^3/uL Gage # (Auto) 0.4 (0.0-1.0) 10^3/uL Eos # (Auto) 0.0 (0.0-0.7) 10^3/uL Baso # (Auto) 0.0 (0.0-0.1) 10^3/uL Absolute Nucleated RBC 0.00 x10^3/uL Nucleated RBC % 0.0 /100WBC Sodium 132 L (135-145) mmol/L Potassium 3.9 (3.5-5.0) mmol/L Chloride 96 L (101-111) mmol/L Carbon Dioxide 26 (21-32) mmol/L Anion Gap 10.0 (6-13) BUN 19 (6-20) mg/dL Creatinine 0.8 (0.4-1.0) mg/dL Estimated GFR (MDRD) 69 L (>89) Glucose 111 H (70-100) mg/dL Lactic Acid (0.5-2.2) mmol/L Calcium 8.8 (8.5-10.3) mg/dL - Current Medications Current Medications: Current Medications Generic Name Dose Route Start Last Admin Trade Name Freq PRN Reason Stop Dose Admin Acetaminophen 650 mg 07/17/21 04:38 07/17/21 23:15 Acetaminophen 325 Mg Tablet PO 650 mg Q4HR PRN Administration Pain 1 to 4 Enoxaparin Sodium 40 mg 07/17/21 09:00 07/18/21 10:56 Enoxaparin 40 Mg/0.4 Ml Syringe SUBQ 40 mg DAILY TACHO Administration Sodium Chloride 1,000 mls @ 85 mls/hr 07/17/21 05:00 07/18/21 05:50 Normal Saline 0.9% IV 85 mls/hr .[id number] TACHO Administration Morphine Sulfate 2 mg 07/17/21 04:38 07/18/21 10:55 Morphine 2 Mg/Ml Carpuject IVP 2 mg Q2HR PRN Administration Pain 8 to 10 Ondansetron HCl 4 mg 07/17/21 04:38 07/17/21 23:35 Ondansetron 4 Mg/2 Ml Vial IVP 4 mg Q6HR PRN Administration Nausea / Vomiting Oxycodone HCl 5 mg 07/17/21 04:38 07/17/21 10:41 Oxycodone 5 Mg Tablet PO 5 mg Q4HR PRN Administration Pain 5 to 7 Sodium Chloride 10 ml 07/17/21 09:00 07/18/21 10:57 Sodium Chloride Flush 0.9% 10 Ml Syringe IVP Not Given 0100,0900,1700 [facility] Impression/Plan - Problem List Problem List: 81 yo female with hx of breast cancer has possible SBO. NG output overnight over 400ml, dark liquid. No abdominal pain, no change on abdominal exam. Gastrografin SBFT ordered to rule out SBO. Start PPI.
[2021-07-18] MEDS: PANTOPRAZOLE 40 MG VIAL IVP SCH (13:06)
[2021-07-18] MEDS ORDERED: DIATRIZOATE MEGLU/DIATRIZO SOD 30 ML BOTTLE PO ONE (15:47)
[2021-07-18] MEDS ORDERED: fentaNYL 100 MCG/2 ML VIAL ONE (16:05)
[2021-07-18] MEDS ORDERED: PROPOFOL 200 MG/20 ML VIAL IVP ONE (16:05)
[2021-07-18] MEDS ORDERED: VECURONIUM 10 MG VIAL ONE (16:07)
[2021-07-18] MEDS ORDERED: WATER FOR INJECTION,STERILE 10 ML MC ONE (16:08)
[2021-07-18] MEDS ORDERED: SUCCINYLCHOLINE 200 MG/10 ML VIAL ONE (16:14)
--- NOTE | 2021-07-18 16:14 | ANESTHESIA ---
Pre-Anesthesia VS, & Labs - Diagnosis small bowel obstruction - Procedure exp. Laparotomy Vital Signs: Temp Pulse Resp BP Pulse Ox 37.2 C 87 20 132/75 H 95 07/18/21 16:06 07/18/21 16:06 07/18/21 16:06 07/18/21 16:06 07/18/21 16:06 Height: 5 ft Weight (kg): 47 kg Body Mass Index: 20.2 BMI Classification: Healthy weight - NPO >8 hours - Is Patient ?: No - Lab Results Current Lab Results: Laboratory Tests 07/18/21 06:14: Sodium 134 L, Potassium 3.8, Chloride 103, Carbon Dioxide 21, Anion Gap 10.0, BUN 21 H, Creatinine 0.8, Estimated GFR (MDRD) 69 L, Glucose 109 H, Calcium 7.9 L 07/18/21 05:44: WBC 6.7, RBC 3.77 L, Hgb 11.9 L, Hct 36.1 L, MCV 95.8, MCH 31.6 H, MCHC 33.0, RDW 13.3, Plt Count 202, MPV 8.9, Neut # (Auto) 4.9, Lymph # (Auto) 1.3 L, [place] # (Auto) 0.5, Eos # (Auto) 0.0, Baso # (Auto) 0.0, Absolute Nucleated RBC 0.00, Nucleated RBC % 0.0 07/17/21 11:51: Lactic Acid 1.4 07/17/21 11:51: Sodium 132 L, Potassium 3.9, Chloride 96 L, Carbon Dioxide 26, Anion Gap 10.0, BUN 19, Creatinine 0.8, Estimated GFR (MDRD) 69 L, Glucose 111 H , Calcium 8.8 07/17/21 11:51: WBC 8.1, RBC 4.39, Hgb 13.8, Hct 41.9, MCV 95.4, MCH 31.4 H, MCHC 32.9, RDW 13.0, Plt Count 217, MPV 8.8, Neut # (Auto) 6.4, Lymph # (Auto) 1.2 L, [place] # (Auto) 0.4, Eos # (Auto) 0.0, Baso # (Auto) 0.0, Absolute Nucleated RBC 0.00, Nucleated RBC % 0.0 07/17/21 06:20: Lactic Acid 1.6 07/17/21 06:20: Sodium 134 L, Potassium 4.2, Chloride 96 L, Carbon Dioxide 24, Anion Gap 14.0 H, BUN 21 H, Creatinine 0.8, Estimated GFR (MDRD) 69 L, Glucose 121 H, Calcium 9.0 07/17/21 06:20: ESR 45 H 07/17/21 06:20: WBC 8.4, RBC 4.28, Hgb 13.5, Hct 40.7, MCV 95.1, MCH 31.5 H, MCHC 33.2, RDW 13.1, Plt Count 217, MPV 8.9, Neut # (Auto) 6.5, Lymph # (Auto) 1.4 L, [place] # (Auto) 0.3, Eos # (Auto) 0.0, Baso # (Auto) 0.0, Absolute Nucleated RBC 0.00, Nucleated RBC % 0.0 07/17/21 00:49: Sodium 134 L, Potassium 3.8, Chloride 96 L, Carbon Dioxide 27, Anion Gap 11.0, BUN 24 H, Creatinine 0.8, Estimated GFR (MDRD) 69 L, Glucose 124 H, Calcium 9.1, Total Bilirubin 1.0, AST 23, ALT 16, Alkaline Phosphatase 58, Total Protein 7.9, Albumin 4.2, Globulin 3.7, Albumin/Globulin Ratio 1.1, Lipase 27 07/17/21 00:49: WBC 8.3, RBC 4.23, Hgb 13.6, Hct 41.0, MCV 96.9, MCH 32.2 H, MCHC 33.2, RDW 13.1, Plt Count 218, MPV 8.8, Neut # (Auto) 6.1, Lymph # (Auto) 1.6, [place] # (Auto) 0.5, Eos # (Auto) 0.1, Baso # (Auto) 0.0, Absolute Nucleated RBC 0.00, Nucleated RBC % 0.0 Lab results reviewed: Yes Fish Bones: 07/18/21 05:44 07/18/21 06:14 Home Medications and Allergies Active Medications Acetaminophen (Acetaminophen 325 Mg Tablet) 650 mg PO Q4HR PRN PRN Reason: Pain 1 to 4 Last Admin: 07/17/21 23:15 Dose: 650 mg Documented by: Enoxaparin Sodium (Enoxaparin 40 Mg/0.4 Ml Syringe) 40 mg SUBQ DAILY [facility] Last Admin: 07/18/21 10:56 Dose: 40 mg Documented by: Sodium Chloride (Normal Saline 0.9%) 1,000 mls @ 85 mls/hr IV .[id number] [facility] Last Admin: 07/18/21 05:50 Dose: 85 mls/hr Documented by: Morphine Sulfate (Morphine 2 Mg/Ml Carpuject) 2 mg IVP Q2HR PRN PRN Reason: Pain 8 to 10 Last Admin: 07/18/21 13:06 Dose: 2 mg Documented by: Ondansetron HCl (Ondansetron Odt 4 Mg Tablet) 4 mg TL Q6HR PRN PRN Reason: Nausea / Vomiting Ondansetron HCl (Ondansetron 4 Mg/2 Ml Vial) 4 mg IVP Q6HR PRN PRN Reason: Nausea / Vomiting Last Admin: 07/17/21 23:35 Dose: 4 mg Documented by: Oxycodone HCl (Oxycodone 5 Mg Tablet) 5 mg PO Q4HR PRN PRN Reason: Pain 5 to 7 Last Admin: 07/17/21 10:41 Dose: 5 mg Documented by: Pantoprazole Sodium (Pantoprazole 40 Mg Vial) 40 mg IVP QDAC [facility] Last Admin: 07/18/21 13:06 Dose: 40 mg Documented by: Phenol/Menthol (Phenol Throat [place] 177 Ml) 2 sprays MM Q2HR PRN PRN Reason: Throat Pain Sodium Chloride (Sodium Chloride Flush 0.9% 10 Ml Syringe) 10 ml IVP PRN PRN PRN Reason: NEEDED PER PROVIDER ORDERS Sodium Chloride (Sodium Chloride Flush 0.9% 10 Ml Syringe) 10 ml IVP 0100,0900,1700 [facility] Last Admin: 07/18/21 10:57 Dose: Not Given Documented by: Throat Lozenges (Benzocaine/Menthol Lozenge) 1 lozenge MM Q2HR PRN PRN Reason: Throat pain Donepezil [Aricept] 5 mg PO QPM 09/11/19 Memantine HCl [Namenda] 10 mg PO DAILY 09/11/19 Allergies/Adverse Reactions: Allergies Allergy/AdvReac Type Severity Reaction Status Date / Time No Known Drug Allergies Allergy Verified 07/17/21 00:33 Anes History & Medical History - Anesthetic History Anesthesia Complications: reports: No previous complications - Medical History Cardiovascular: reports: None Pulmonary: reports: None Gastrointestinal: reports: None Urinary: reports: None Neuro: reports: Dementia Musculoskeletal: reports: None Endocrine/Autoimmune: reports: None Blood Disorders: reports: None Skin: reports: None Smoking Status: Never smoker Psychosocial: reports: No issues indicated History of Cancer?: Yes (breast cancer) - Surgical History Gynecologic: reports: section, Mastectomy (bilateral) Exam General: Alert, Cooperative, No acute distress Dental: Dentures full Upper, Dentures full Lower Mouth Openin Fingerbreadth Neck Mobility: Normal Mallampati classification: II Thyromental Distance: 4-6 cm Mental/Cognitive Status: Normal for patient Plan Anesthesia Type: General, Transverse Abdominis Plane (TAP) Block (Che[place].) Consent for Procedure(s) Verified and Reviewed: Yes Code Status: Attempt Resuscitation ASA classification: 3-Severe systemic disease Is this case an emergency?: Yes
[2021-07-18] MEDS ORDERED: fentaNYL 100 MCG/2 ML VIAL IVP PRN (16:15)
[2021-07-18] MEDS ORDERED: MORPHINE 2 MG/ML CARPUJECT IVP PRN (16:15)
[2021-07-18] MEDS ORDERED: NALOXONE 0.4 MG/ML VIAL IVP PRN (16:15)
[2021-07-18] MEDS ORDERED: ONDANSETRON 4 MG/2 ML VIAL IVP PRN ×2 (16:15→17:24)
[2021-07-18] MEDS ORDERED: HYDROmorphone 0.5 MG/0.5 ML SYRINGE IVP PRN (16:15)
[2021-07-18] MEDS ORDERED: ATROPINE ABBOJECT 1 MG/10 ML SYRINGE IVP PRN (16:15)
[2021-07-18] MEDS ORDERED: ceFAZolin 1 GM VIAL ONE (16:45)
--- NOTE | 2021-07-18 16:49 | XRAY Report ---
PROCEDURE: Small Bowel Follow Through INDICATIONS: rule out small bowel obstruction COMPARISON: Correlation is made with CT, 07/17/2021. CONTRAST: CONTRAST: gastro FINDINGS: Small bowel: There is prolonged transit time of barium through the small bowel with contrast reachin g the colon by the 4 hour image. Dilated loops of small bowel are seen that measure up to 3.6 cm. The tip of the gastric tube on the final image can be seen within the mid stomach. Age-appropriate degenerative changes are seen. Mild levoconvex scoliotic curvature is seen. IMPRESSION: Prolonged transit time through the small bowel, with the contrast not reaching the colon by the 4 sejal r film. The small bowel loops measure up to 3.6 cm. These imaging findings are supportive of a diagnosis of small bowel obstruction, although differentia l diagnosis would also include partial small bowel obstruction or high-grade ileus. Reviewed by: Aleksey Howard MD on 07/18/2021 3:48 PM [place] Approved by: Aleksey Howard MD on 07/18/2021 3:48 PM [facility] Station ID: [id number]
[2021-07-18] MEDS ORDERED: LACTATED RINGERS 1,000 ML IV SCH (17:00)
[2021-07-18] MEDS ORDERED: SODIUM CHLORIDE 0.9% 10 ML VIAL IVP ONE (17:07)
[2021-07-18] MEDS ORDERED: ROPIVACAINE 0.5% PF 20 ML AMPULE ONE (17:07)
[2021-07-18] MEDS ORDERED: ONDANSETRON 4 MG/2 ML VIAL ONE (17:09)
[2021-07-18] MEDS ORDERED: DEXAMETHASONE 4 MG/ML VIAL ONE (17:09)
[2021-07-18] MEDS ORDERED: SODIUM CHLORIDE FLUSH 0.9% 10 ML SYRINGE IVP PRN (17:24)
[2021-07-18] MEDS ORDERED: LACTATED RINGERS 1,000 ML IV ONE (17:31)
--- NOTE | 2021-07-18 17:31 | OPERATIVE REPORT ---
Operative Report - General Admit Date: 07/17/21 Procedure Date: 07/18/21 Planned Procedure: Exploratory laparotomy Pre-Op Diagnosis: SBO Procedure Performed: Ex lap, lysis of adhesions Post Op Diagnosis: SBO secondary to adhesion - Procedure Note Primary Surgeon: Enmanuel Minaya Anesthesia Provider: Ayanna NIEVES Anesthesia Technique: General ET tube Estimated Blood Loss (mL): 25 Indications: 81 YO FEMALE WITH SBO, CONFIRMED BY GASTROGRAFIN SBFT Findings: Single adhesive band causing complete SBO. All bowel viable after lysis of adhesion. Complications: none - Other Other Information/Narrative: The patient was taken to the operating room where general anesthesia was induced, the patient was intubated, Hager catheter was placed, and the abdomen was prepped with ChloraPrep and sterilely draped in usual fashion. A midline incision was made just above the umbilicus with a scalpel. Cautery dissection was taken through the midline fascia. There was straw-colored ascitic fluid on entering the abdomen. A loop of distended small bowel was identified and delivered into the wound. There was a thin adhesive band at the base of this loop causing a complete obstruction. The adhesive band was divided with cautery and small bowel contents were milked from proximal to distal through the loop of bowel with no leakage and good vascular supply and viability of the bowel. The small bowel was run from the ligament of Treitz to the ileocecal valve and there were no other obstructions noted. The abdomen is irrigated with 1 L of warm saline, the small bowel was returned to the abdomen, and the midline incision fascia was closed with a running stitch of double-stranded 0 PDS. Subcutaneous tissues were irrigated with saline and the skin was then closed with torres. Mepilex dressing was applied, anesthesia proceeded to place TAP blocks, and the patient was later extubated and taken to recovery room in stable condition.
--- NOTE | 2021-07-18 17:54 | ANESTHESIA POST OP EVALUATION ---
Anesthesia Post Eval - Post Anesthesia Eval Vitals: Last Vital Signs Temp 36.8 C 07/18/21 17:45 Pulse 76 07/18/21 17:45 Resp 21 07/18/21 17:45 BP 115/77 07/18/21 17:45 Pulse Ox 99 07/18/21 17:45 CV Function Including HR & BP: Stable Pain Control: Satisfactory Nausea & Vomiting: Negative Mental Status: Patient Participates Respiratory Status: Airway Patent Hydration Status: Satisfactory Anesthesia Complications: None
[2021-07-18] MEDS ORDERED: HYDROmorphone 0.5 MG/0.5 ML SYRINGE ONE (17:56)
[2021-07-18] MEDS ORDERED: SUGAMMADEX 200 MG/2 ML VIAL IVP ONE (18:02)
[2021-07-19] MEDS: SODIUM CHLORIDE FLUSH 0.9% 10 ML SYRINGE IVP PRN (05:46)
[2021-07-19] MEDS: PANTOPRAZOLE 40 MG VIAL IVP SCH (05:46)
[2021-07-19 06:10] LABS: HCT - HEMATOCRIT 33.2 % (37.0-47.0); HGB - HEMOGLOBIN 10.8 g/dL (12.0-16.0); MEAN CORPUSCULAR HEMOGLOBIN 31.7 pg (27.0-31.0); MEAN CORPUSCULAR HGB CONC 32.5 g/dL (32.0-36.0); MEAN CORPUSCULAR VOLUME 97.4 fL (81.0-99.0); MEAN PLATELET VOLUME 9.3 fL (7.9-10.8); RED BLOOD COUNT 3.41 10^6/uL (4.20-5.40); RED CELL DISTRIBUTION WIDTH 13.5 % (12.0-15.0)
[2021-07-19] MEDS: MORPHINE 2 MG/ML CARPUJECT IVP PRN ×4 (06:17→19:40)
[2021-07-19 06:23] LABS: CALCIUM 7.4 mg/dL (8.5-10.3); CREATININE 0.8 mg/dL (0.4-1.0); POTASSIUM 3.6 mmol/L (3.5-5.0)
[2021-07-19] MEDS: SODIUM CHLORIDE 0.9% 1,000 ML IV SCH ×2 (07:48→19:56)
[2021-07-19] MEDS: SODIUM CHLORIDE FLUSH 0.9% 10 ML SYRINGE IVP SCH ×4 (08:46→20:30)
[2021-07-19] MEDS: ENOXAPARIN 40 MG/0.4 ML SYRINGE SUBQ SCH (08:47)
--- NOTE | 2021-07-19 12:28 | PROVIDER PROGRESS NOTE ---
Subjective - Prog Note Date Prog Note Date: 07/19/21 - Subjective Pt reports feeling: Improved Subjective: Yesterday afternoon Pt's small bowel follow through showed a complete SBO and she was taken to the OR with Dr. Minaya. Today she continues to report abdominal pain but it has improved throughout the morning with movement and pain medications. Denies nausea or vomiting, has not had a bowel movement. Nursing provided her with a pillow to splint with to cough and her has been reminding her to use the IS and work on deep breathing to prevent pneumonia. She has not been out of bed yet. Objective - Vital Signs/Intake & Output Reviewed Vital Signs: Yes Vital Signs: Vital Signs x48h Temp Pulse Resp BP Pulse Ox 07/19/21 09:26 37.7 C 83 17 102/69 92 07/19/21 08:00 37.9 C 85 18 110/70 92 Intake & Output: Intake & Output 07/16/21 07/17/21 07/18/21 07/19/21 23:59 23:59 23:59 23:59 Intake Total 1280 1955 1030 Output Total 470 1050 400 Balance 810 905 630 - Objective General Appearance: positive: No acute distress, Alert Eyes Bilateral: positive: Normal inspection, PERRL ENT: positive: ENT inspection nml, No signs of dehydration Neck: positive: Nml inspection Respiratory: positive: Chest non-tender, No respiratory distress, Other (Breath sounds diminished in the bases) Cardiovascular: positive: Regular rate & rhythm, No murmur, No gallop Peripheral Pulses: 2+ Radial (R), 2+ Radial (L), 2+ Dorsalis pedis (R), 2+ Dorsalis pedis (L) Abdomen: positive: No organomegaly, Nml bowel sounds, Tenderness (Located at the postop site, no rebounding or guarding; pain controlled with her PRN regimen) Skin: positive: Other (midline surgical incision covered with a Mepilex AG incisional dressing with some bloody strikethrough, not saturated) Extremities: positive: Non-tender, Full ROM, Nml appearance, No pedal edema Neurologic/Psychiatric: positive: Oriented x3, Motor nml, Sensation nml, Mood/affect nml - Lab Results Fish Bones: 07/19/21 05:46 07/19/21 05:46 Other Labs: Lab Results x24hrs 07/19/21 07/19/21 Range/Units 05:46 05:46 WBC 4.0 L (4.8-10.8) x10^3/uL RBC 3.41 L (4.20-5.40) 10^6/uL Hgb 10.8 L (12.0-16.0) g/dL Hct 33.2 L (37.0-47.0) % MCV 97.4 (81.0-99.0) fL MCH 31.7 H (27.0-31.0) pg MCHC 32.5 (32.0-36.0) g/dL RDW 13.5 (12.0-15.0) % Plt Count 178 (130-450) 10^3/uL MPV 9.3 (7.9-10.8) fL Sodium 140 (135-145) mmol/L Potassium 3.6 (3.5-5.0) mmol/L Chloride 108 (101-111) mmol/L Carbon Dioxide 22 (21-32) mmol/L Anion Gap 10.0 (6-13) BUN 22 H (6-20) mg/dL Creatinine 0.8 (0.4-1.0) mg/dL Estimated GFR (MDRD) 69 L (>89) Glucose 102 H (70-100) mg/dL Calcium 7.4 L (8.5-10.3) mg/dL ABX Reporting Has patient been on IV antibiotics over the past 48 hours?: Yes Sepsis Event Note (H) - Evaluation Current Stage of Sepsis: Ruled out Assessment/Plan - Problem List (1) Small bowel obstruction Impression: Stable. Small bowel follow through yesterday afternoon revealed a complete small bowel obstruction. She was taken to the OR by Dr. Minaya, who performed an ex lap with lysis of adhesions. She returned to the floor shortly afternoon. Her surgical dressing today has bloody strikethrough but is not saturated. She continues to have abdominal pain but overall appears to be more comfortable than last evening and early this morning. Has been receiving analgesics regularly and working with her and nursing to cough, deep breathe and use the IS. NG remains in place with minimal output, will discuss with Surgery if it can be taken off wall suction and possibly removed later today. She remains NPO at this time, bowel tones are hyperactive. -Continue IV Protonix -Out of bed, ambulating when able -IS 10x/hr while awake to prevent pneumonia -Continue NG tube to low intermittent suction, discuss timing of removal with General Surgery -NPO, continue IVF (2) S/P exploratory laparotomy Impression: She went to the OR yesterday evening with Dr. Minaya and an ex lap with lysis of adhesions was performed for treatment of her small bowel obstruction. The midline incision dressing has bloody strikethrough but is not saturated. No signs of wound infection. (3) Dementia Impression: Stable. She and her report a history of mild dementia. She gets pleasantly confused, often saying "I don't know". Easily prompted and able to follow commands. Has not had any behavioral issues. Medications will remain held due to her nausea overnight when attempting Tylenol and known side effect of nausea with a few of her home meds. Qualifiers: Dementia type: Alzheimer's Dementia behavioral disturbance: without behavioral disturbance
--- NOTE | 2021-07-19 15:35 | PROVIDER PROGRESS NOTE ---
Subjective - General Admit Date: 07/17/21 Procedure Date: 07/18/21 Post Op Days: 1 Procedure Performed: Laparotomy with lysis of adhesions - Review of Systems Wound/Incisions: positive: Dressing dry and intact General: positive: Fatigue HEENT: positive: No symptoms Pulmonary: positive: No symptoms Cardiovascular: positive: No symptoms Gastrointestinal: positive: Abdominal pain. negative: Nausea, Vomiting, Flatus Musculoskeletal: positive: No symptoms Skin: positive: No symptoms Psychiatric: positive: No symptoms All Other Systems: positive: Reviewed and negative Objective - Patient Data Reviewed Vital Signs: Yes Vital Signs: Vital Signs x48h Temp Pulse Resp BP Pulse Ox 07/19/21 09:26 37.7 C 83 17 102/69 92 07/19/21 08:00 37.9 C 85 18 110/70 92 Weight: Weight 07/17/21 07/18/21 07/19/21 23:59 23:59 23:59 Weight (kg) 47 kg 47 kg Intake & Output: Intake and Output Totals x24h 07/17/21 07/18/21 07/19/21 23:59 23:59 23:59 Intake Total 1280 1955 1070 Output Total 470 1050 575 Balance 810 905 495 - Lab Results Lab Results: 07/19/21 05:46 07/19/21 05:46 Other Lab Results: Lab Results x24hrs 07/19/21 07/19/21 Range/Units 05:46 05:46 WBC 4.0 L (4.8-10.8) x10^3/uL RBC 3.41 L (4.20-5.40) 10^6/uL Hgb 10.8 L (12.0-16.0) g/dL Hct 33.2 L (37.0-47.0) % MCV 97.4 (81.0-99.0) fL MCH 31.7 H (27.0-31.0) pg MCHC 32.5 (32.0-36.0) g/dL RDW 13.5 (12.0-15.0) % Plt Count 178 (130-450) 10^3/uL MPV 9.3 (7.9-10.8) fL Sodium 140 (135-145) mmol/L Potassium 3.6 (3.5-5.0) mmol/L Chloride 108 (101-111) mmol/L Carbon Dioxide 22 (21-32) mmol/L Anion Gap 10.0 (6-13) BUN 22 H (6-20) mg/dL Creatinine 0.8 (0.4-1.0) mg/dL Estimated GFR (MDRD) 69 L (>89) Glucose 102 H (70-100) mg/dL Calcium 7.4 L (8.5-10.3) mg/dL - Current Medications Current Medications: Current Medications Generic Name Dose Route Start Last Admin Trade Name Freq PRN Reason Stop Dose Admin Enoxaparin Sodium 40 mg 07/17/21 09:00 07/19/21 08:47 Enoxaparin 40 Mg/0.4 Ml Syringe SUBQ 40 mg DAILY TACHO Administration Sodium Chloride 1,000 mls @ 85 mls/hr 07/17/21 05:00 07/19/21 07:48 Normal Saline 0.9% IV 85 mls/hr .[id number] TACHO Administration Morphine Sulfate 2 mg 07/17/21 04:38 07/19/21 08:47 Morphine 2 Mg/Ml Carpuject IVP 2 mg Q2HR PRN Administration Pain 8 to 10 Ondansetron HCl 4 mg 07/17/21 04:38 07/17/21 23:35 Ondansetron 4 Mg/2 Ml Vial IVP 4 mg Q6HR PRN Administration Nausea / Vomiting Oxycodone HCl 5 mg 07/17/21 04:38 07/17/21 10:41 Oxycodone 5 Mg Tablet PO 5 mg Q4HR PRN Administration Pain 5 to 7 Pantoprazole Sodium 40 mg 07/18/21 12:00 07/19/21 05:46 Pantoprazole 40 Mg Vial IVP 40 mg QDAC TACHO Administration Sodium Chloride 10 ml 07/17/21 04:38 07/19/21 05:46 Sodium Chloride Flush 0.9% 10 Ml Syringe IVP 10 ml PRN PRN Administration NEEDED PER PROVIDER ORDERS Sodium Chloride 10 ml 07/17/21 09:00 07/19/21 08:46 Sodium Chloride Flush 0.9% 10 Ml Syringe IVP Not Given 0100,0900,1700 TACHO Sodium Chloride 10 ml 07/19/21 01:00 07/19/21 08:46 Sodium Chloride Flush 0.9% 10 Ml Syringe IVP Not Given 0100,0900,1700 TACHO - Physical Exam Wound/Incisions: positive: Healing well General Appearance: positive: No acute distress, Alert Eyes Bilateral: positive: Normal inspection, PERRL, EOMI ENT: positive: ENT inspection nml Neck: positive: Nml inspection Respiratory: positive: No respiratory distress Cardiovascular: positive: Regular rate & rhythm Abdomen: positive: Other (Mildly distended with active bowel sounds. Appropriately tender with silver dressing in place.) Back: positive: Nml inspection Skin: positive: Color nml Neurologic/Psychiatric: positive: Oriented x3 ABX Reporting Has patient been on IV antibiotics over the past 48 hours?: No Impression/Plan - Problem List Problem List: Small bowel obstruction secondary to adhesions.-Resolved. 1. Patient has bowel sounds and minimal NG output. No flatus yet. NG tube has been removed. 2. Will allow sips and chips tonight. Consider advancing in the morning if she continues to do well.
[2021-07-19] MEDS: oxyCODONE 5 MG TABLET PO PRN (20:36)
[2021-07-20] MEDS: oxyCODONE 5 MG TABLET PO PRN (00:35)
[2021-07-20] MEDS: SODIUM CHLORIDE FLUSH 0.9% 10 ML SYRINGE IVP SCH ×6 (01:00→16:20)
[2021-07-20 06:20] LABS: HCT - HEMATOCRIT 33.4 % (37.0-47.0); HGB - HEMOGLOBIN 10.7 g/dL (12.0-16.0); MEAN CORPUSCULAR HEMOGLOBIN 31.4 pg (27.0-31.0); MEAN CORPUSCULAR VOLUME 97.9 fL (81.0-99.0); MEAN PLATELET VOLUME 9.1 fL (7.9-10.8); RED BLOOD COUNT 3.41 10^6/uL (4.20-5.40); RED CELL DISTRIBUTION WIDTH 13.6 % (12.0-15.0)
[2021-07-20 06:30] LABS: CALCIUM 7.3 mg/dL (8.5-10.3); CREATININE 0.8 mg/dL (0.4-1.0); POTASSIUM 3.6 mmol/L (3.5-5.0)
[2021-07-20] MEDS: PANTOPRAZOLE 40 MG VIAL IVP SCH (06:54)
[2021-07-20] MEDS: SODIUM CHLORIDE 0.9% 1,000 ML IV SCH (07:25)
[2021-07-20] MEDS ORDERED: METOCLOPRAMIDE 10 MG/2 ML VIAL IVP PRN (08:06)
[2021-07-20] MEDS: ENOXAPARIN 40 MG/0.4 ML SYRINGE SUBQ SCH (08:24)
[2021-07-20] MEDS: ACETAMINOPHEN 1,000 MG/100 ML 100 ML IV PRN ×2 (08:25→20:37)
--- NOTE | 2021-07-20 08:44 | XRAY Report ---
PROCEDURE: Chest 1 View X-Ray INDICATIONS: sob TECHNIQUE: One view of the chest was acquired. COMPARISON: 07/17/2021 FINDINGS: Surgical changes and devices: Previously seen nasogastric tube has been removed. Multiple surgical cl ips noted in the right axilla. Lungs and pleura: Interval development of [id number] right pleural effusion and small left pleural effusion. Diffuse interstitial prominence. Patchy bibasilar opacities more pronounced in the right which may represent compressive atelectasis although developing airspace disease/pneumonia may have a similar appearance. Suggestion of mild pulmonary vascular congestion. Mediastinum: Mediastinal contours appear normal. Heart size is normal. Bones and chest wall: No suspicious bony lesions. Overlying soft tissues appear unremarkable. IMPRESSION: Interval development of bilateral pleural effusions, larger on the right. Diffuse interstitial promin ence and suggestion of pulmonary vascular congestion. Findings may represent developing pulmonary ji ma/CHF. Patchy bibasilar opacities favored to represent compressive atelectasis. However, concurrent airspace disease/pneumonia not excluded clinically appropriate. Recommend short interval follow-up chest radiograph 4-6 weeks after treatment to document return to b aseline exam. Reviewed by: Mason Coates MD on 07/20/2021 8:43 AM PST Approved by: Mason Coates MD on 07/20/2021 8:43 AM PST Station ID: [id number]
[2021-07-20] MEDS ORDERED: SODIUM CHLORIDE 0.9% 1,000 ML IV SCH (10:39)
--- NOTE | 2021-07-20 12:44 | PROVIDER PROGRESS NOTE ---
Subjective - General Admit Date: 07/17/21 Procedure Date: 07/18/21 Post Op Days: 2 Procedure Performed: Laparotomy with lysis of adhesions - Review of Systems Wound/Incisions: positive: Healing well General: positive: Fatigue HEENT: positive: No symptoms Pulmonary: positive: No symptoms Cardiovascular: positive: No symptoms Gastrointestinal: positive: Abdominal pain. negative: Nausea, Vomiting, Flatus Musculoskeletal: positive: No symptoms Skin: positive: No symptoms Psychiatric: positive: No symptoms All Other Systems: positive: Reviewed and negative - Other Other Information/Narrative: Feeling much better. Had a bowel movement this AM. Would like to try some jello Objective - Patient Data Reviewed Vital Signs: Yes Vital Signs: Vital Signs x48h Temp Pulse Resp BP Pulse Ox 07/20/21 07:25 37.8 C 100 100 H 144/81 H 92 Weight: Weight 07/18/21 07/19/21 07/20/21 23:59 23:59 23:59 Weight (kg) 47 kg Intake & Output: Intake and Output Totals x24h 07/18/21 07/19/21 07/20/21 23:59 23:59 23:59 Intake Total 1955 2170 1076.083 Output Total 1050 800 400 Balance 905 1370 676.083 - Lab Results Lab Results: 07/20/21 06:09 07/20/21 06:09 Other Lab Results: Lab Results x24hrs 07/20/21 07/20/21 Range/Units 06:09 06:09 WBC 3.0 L (4.8-10.8) x10^3/uL RBC 3.41 L (4.20-5.40) 10^6/uL Hgb 10.7 L (12.0-16.0) g/dL Hct 33.4 L (37.0-47.0) % MCV 97.9 (81.0-99.0) fL MCH 31.4 H (27.0-31.0) pg MCHC 32.0 (32.0-36.0) g/dL RDW 13.6 (12.0-15.0) % Plt Count 157 (130-450) 10^3/uL MPV 9.1 (7.9-10.8) fL Sodium 140 (135-145) mmol/L Potassium 3.6 (3.5-5.0) mmol/L Chloride 110 (101-111) mmol/L Carbon Dioxide 17 L (21-32) mmol/L Anion Gap 13.0 (6-13) BUN 21 H (6-20) mg/dL Creatinine 0.8 (0.4-1.0) mg/dL Estimated GFR (MDRD) 69 L (>89) Glucose 79 (70-100) mg/dL Calcium 7.3 L (8.5-10.3) mg/dL - Current Medications Current Medications: Current Medications Generic Name Dose Route Start Last Admin Trade Name Freq PRN Reason Stop Dose Admin Enoxaparin Sodium 40 mg 07/17/21 09:00 07/20/21 08:24 Enoxaparin 40 Mg/0.4 Ml Syringe SUBQ 40 mg DAILY TACHO Administration Acetaminophen 100 mls @ 400 mls/hr 07/19/21 10:07 07/20/21 11:31 Ofirmev IV Infused Q6HR PRN Infusion PAIN Morphine Sulfate 2 mg 07/17/21 04:38 07/19/21 19:40 Morphine 2 Mg/Ml Carpuject IVP 2 mg Q2HR PRN Administration Pain 8 to 10 Ondansetron HCl 4 mg 07/17/21 04:38 07/17/21 23:35 Ondansetron 4 Mg/2 Ml Vial IVP 4 mg Q6HR PRN Administration Nausea / Vomiting Oxycodone HCl 5 mg 07/17/21 04:38 07/20/21 00:35 Oxycodone 5 Mg Tablet PO 5 mg Q4HR PRN Administration Pain 5 to 7 Pantoprazole Sodium 40 mg 07/18/21 12:00 07/20/21 06:54 Pantoprazole 40 Mg Vial IVP 40 mg QDAC TACHO Administration Sodium Chloride 10 ml 07/17/21 04:38 07/19/21 05:46 Sodium Chloride Flush 0.9% 10 Ml Syringe IVP 10 ml PRN PRN Administration NEEDED PER PROVIDER ORDERS Sodium Chloride 10 ml 07/17/21 09:00 07/20/21 08:24 Sodium Chloride Flush 0.9% 10 Ml Syringe IVP 10 ml 0100,0900,1700 TACHO Administration Sodium Chloride 10 ml 07/19/21 01:00 07/20/21 08:25 Sodium Chloride Flush 0.9% 10 Ml Syringe IVP Not Given 0100,0900,1700 TACHO - Physical Exam Wound/Incisions: positive: Dressing dry and intact General Appearance: positive: No acute distress Eyes Bilateral: positive: Normal inspection, PERRL ENT: positive: ENT inspection nml Neck: positive: Nml inspection Respiratory: positive: Chest non-tender, No respiratory distress Cardiovascular: positive: Regular rate & rhythm, No murmur Abdomen: positive: Other (Appropriately tender with active bowel sounds) Skin: positive: Color nml Neurologic/Psychiatric: positive: Oriented x3 ABX Reporting Has patient been on IV antibiotics over the past 48 hours?: No Impression/Plan - Problem List Problem List: Bowel obstruction has resolved. Will advance diet as tolerated starting with Jello now as that is her request.
--- NOTE | 2021-07-20 14:07 | PROVIDER PROGRESS NOTE ---
Assessment/Plan - Problem List (1) Small bowel obstruction Assessment/Plan: 07/20 Patient had a bowel movement on today. Patient's bowel is soft, had a good bowel sound. she denies nausea or vomiting. Today is Day #2 of s/p of exploratory lab. NG tube was removed on yesterday. Surgeon start diet for pt. we will continue followup with surgeon, continue s/p surgery care. encourage pt out of bed and safely ambulate. (2) Dementia Impression: Stable. resume home Aricept and Namenda - Current Meds Current Meds: Current Medications Generic Name Dose Route Start Last Admin Trade Name Freq PRN Reason Stop Dose Admin Enoxaparin Sodium 40 mg 07/17/21 09:00 07/20/21 08:24 Enoxaparin 40 Mg/0.4 Ml Syringe SUBQ 40 mg DAILY TACHO Administration Acetaminophen 100 mls @ 400 mls/hr 07/19/21 10:07 07/20/21 11:31 Ofirmev IV Infused Q6HR PRN Infusion PAIN Morphine Sulfate 2 mg 07/17/21 04:38 07/19/21 19:40 Morphine 2 Mg/Ml Carpuject IVP 2 mg Q2HR PRN Administration Pain 8 to 10 Ondansetron HCl 4 mg 07/17/21 04:38 07/17/21 23:35 Ondansetron 4 Mg/2 Ml Vial IVP 4 mg Q6HR PRN Administration Nausea / Vomiting Oxycodone HCl 5 mg 07/17/21 04:38 07/20/21 00:35 Oxycodone 5 Mg Tablet PO 5 mg Q4HR PRN Administration Pain 5 to 7 Pantoprazole Sodium 40 mg 07/18/21 12:00 07/20/21 06:54 Pantoprazole 40 Mg Vial IVP 40 mg QDAC TACHO Administration Sodium Chloride 10 ml 07/17/21 04:38 07/19/21 05:46 Sodium Chloride Flush 0.9% 10 Ml Syringe IVP 10 ml PRN PRN Administration NEEDED PER PROVIDER ORDERS Sodium Chloride 10 ml 07/17/21 09:00 07/20/21 08:24 Sodium Chloride Flush 0.9% 10 Ml Syringe IVP 10 ml 0100,0900,1700 TACHO Administration Sodium Chloride 10 ml 07/19/21 01:00 07/20/21 08:25 Sodium Chloride Flush 0.9% 10 Ml Syringe IVP Not Given 0100,0900,1700 TACHO - Lab Result Fish Bone Diagrams: 07/20/21 06:09 07/20/21 06:09 - Additional Planning My Orders: My Active Orders 07/20/21 09:04 Out of bed 4+ hours [RC] QID Subjective - Subjective Patient Reports: Feeling Better, Resting Comfortably Objective Vital Signs: Vital Signs - 24 hr 07/19/21 07/19/21 07/20/21 16:00 19:40 01:12 Temperature 36.5 C 37.4 C Heart Rate [ 86 88 90 Brachial] Respiratory 16 20 18 Rate Blood Pressure 108/56 L 126/74 110/65 [Right Brachial artery] O2 Saturation 92 90 L 94 07/20/21 07:25 Temperature 37.8 C Heart Rate [ 100 Brachial] Respiratory 100 H Rate Blood Pressure 144/81 H [Right Brachial artery] O2 Saturation 92 Oxygen O2 Source Room air I&O (Last 24 Hrs): Intake and Output Totals x24h 07/18/21 07/19/21 07/20/21 23:59 23:59 23:59 Intake Total 1955 2170 1076.083 Output Total 1050 800 400 Balance 905 1370 676.083 General: Alert, Cooperative, No acute distress HEENT: Atraumatic Neck: Supple Lymphatic: no adenopathy Neuro: Alert, Non Focal Cardiovascular: Regular rate, Normal S1, Normal S2 Respiratory: Chest non-tender, No respiratory distress Abdomen: Normal bowel sounds, Soft, No tenderness Extremities: Normal pulses - Results Results: Laboratory Results WBC 3.0 x10^3/uL (4.8-10.8) L 07/20/21 06:09 RBC 3.41 10^6/uL (4.20-5.40) L 07/20/21 06:09 Hgb 10.7 g/dL (12.0-16.0) L 07/20/21 06:09 Hct 33.4 % (37.0-47.0) L 07/20/21 06:09 MCV 97.9 fL (81.0-99.0) 07/20/21 06:09 MCH 31.4 pg (27.0-31.0) H 07/20/21 06:09 MCHC 32.0 g/dL (32.0-36.0) 07/20/21 06:09 RDW 13.6 % (12.0-15.0) 07/20/21 06:09 Plt Count 157 10^3/uL (130-450) 07/20/21 06:09 MPV 9.1 fL (7.9-10.8) 07/20/21 06:09 Neut # (Auto) 4.9 10^3/uL (1.5-6.6) 07/18/21 05:44 Lymph # (Auto) 1.3 10^3/uL (1.5-3.5) L 07/18/21 05:44 Louisa # (Auto) 0.5 10^3/uL (0.0-1.0) 07/18/21 05:44 Eos # (Auto) 0.0 10^3/uL (0.0-0.7) 07/18/21 05:44 Baso # (Auto) 0.0 10^3/uL (0.0-0.1) 07/18/21 05:44 Absolute Nucleated RBC 0.00 x10^3/uL 07/18/21 05:44 Nucleated RBC % 0.0 /100WBC 07/18/21 05:44 ESR 45 mm/Hr (0-30) H 07/17/21 06:20 Sodium 140 mmol/L (135-145) 07/20/21 06:09 Potassium 3.6 mmol/L (3.5-5.0) 07/20/21 06:09 Chloride 110 mmol/L (101-111) 07/20/21 06:09 Carbon Dioxide 17 mmol/L (21-32) L 07/20/21 06:09 Anion Gap 13.0 (6-13) 07/20/21 06:09 BUN 21 mg/dL (6-20) H 07/20/21 06:09 Creatinine 0.8 mg/dL (0.4-1.0) 07/20/21 06:09 Estimated GFR (MDRD) 69 (>89) L 07/20/21 06:09 Glucose 79 mg/dL (70-100) 07/20/21 06:09 Lactic Acid 1.4 mmol/L (0.5-2.2) 07/17/21 11:51 Calcium 7.3 mg/dL (8.5-10.3) L 07/20/21 06:09 Total Bilirubin 1.0 mg/dL (0.2-1.0) 07/17/21 00:49 AST 23 IU/L (10-42) 07/17/21 00:49 ALT 16 IU/L (10-60) 07/17/21 00:49 Alkaline Phosphatase 58 IU/L (42-121) 07/17/21 00:49 Total Protein 7.9 g/dL (6.7-8.2) 07/17/21 00:49 Albumin 4.2 g/dL (3.2-5.5) 07/17/21 00:49 Globulin 3.7 g/dL (2.1-4.2) 07/17/21 00:49 Albumin/Globulin Ratio 1.1 (1.0-2.2) 07/17/21 00:49 Lipase 27 U/L (22-51) 07/17/21 00:49 Urine Color YELLOW 07/17/21 00:40 Urine Clarity CLEAR (CLEAR) 07/17/21 00:40 Urine pH 6.5 PH (5.0-7.5) 07/17/21 00:40 Ur Specific [place] 1.020 (1.002-1.030) 07/17/21 00:40 Urine Protein NEGATIVE mg/dL (NEGATIVE) 07/17/21 00:40 Urine Glucose (UA) NEGATIVE mg/dL (NEGATIVE) 07/17/21 00:40 Urine Ketones TRACE mg/dL (NEGATIVE) 07/17/21 00:40 Urine Occult Blood NEGATIVE (NEGATIVE) 07/17/21 00:40 Urine Nitrite NEGATIVE (NEGATIVE) 07/17/21 00:40 Urine Bilirubin NEGATIVE (NEGATIVE) 07/17/21 00:40 Urine Urobilinogen 1 (NORMAL) E.U./dL (NORMAL) 07/17/21 00:40 Ur Leukocyte Esterase NEGATIVE (NEGATIVE) 07/17/21 00:40 Ur Microscopic Review NOT INDICATED 07/17/21 00:40 Urine Culture Comments NOT INDICATED 07/17/21 00:40 - Procedures Procedures: Procedures COLONOSCOPY (03/10/15) Sepsis Event Note (H) - Evaluation Current Stage of Sepsis: Ruled out ABX Reporting Has patient been on IV antibiotics over the past 48 hours?: No Current Medications - Current Medications Current Medications: Active Medications Donepezil HCl (Donepezil 5 Mg Tablet) 5 mg PO QPM [facility] Enoxaparin Sodium (Enoxaparin 40 Mg/0.4 Ml Syringe) 40 mg SUBQ DAILY [facility] Last Admin: 07/20/21 08:24 Dose: 40 mg Documented by: Acetaminophen (Ofirmev) 100 mls @ 400 mls/hr IV Q6HR PRN PRN Reason: PAIN Last Infusion: 07/20/21 11:31 Dose: Infused Documented by: Metoclopramide HCl (Metoclopramide 10 Mg/2 Ml Vial) 5 mg IVP Q8HR PRN PRN Reason: Nausea / Vomiting Morphine Sulfate (Morphine 2 Mg/Ml Carpuject) 2 mg IVP Q2HR PRN PRN Reason: Pain 8 to 10 Last Admin: 07/19/21 19:40 Dose: 2 mg Documented by: Non-Formulary Medication (Memantine Hcl [Namenda]) 10 mg PO DAILY [facility] Ondansetron HCl (Ondansetron Odt 4 Mg Tablet) 4 mg TL Q6HR PRN PRN Reason: Nausea / Vomiting Ondansetron HCl (Ondansetron 4 Mg/2 Ml Vial) 4 mg IVP Q6HR PRN PRN Reason: Nausea / Vomiting Last Admin: 07/17/21 23:35 Dose: 4 mg Documented by: Oxycodone HCl (Oxycodone 5 Mg Tablet) 5 mg PO Q4HR PRN PRN Reason: Pain 5 to 7 Last Admin: 07/20/21 00:35 Dose: 5 mg Documented by: Pantoprazole Sodium (Pantoprazole 40 Mg Vial) 40 mg IVP QDAC [facility] Last Admin: 07/20/21 06:54 Dose: 40 mg Documented by: Phenol/Menthol (Phenol Throat [place] 177 Ml) 2 sprays MM Q2HR PRN PRN Reason: Throat Pain Sodium Chloride (Sodium Chloride Flush 0.9% 10 Ml Syringe) 10 ml IVP PRN PRN PRN Reason: NEEDED PER PROVIDER ORDERS Last Admin: 07/19/21 05:46 Dose: 10 ml Documented by: Sodium Chloride (Sodium Chloride Flush 0.9% 10 Ml Syringe) 10 ml IVP 0100,0900,1700 [facility] Last Admin: 07/20/21 08:24 Dose: 10 ml Documented by: Sodium Chloride (Sodium Chloride Flush 0.9% 10 Ml Syringe) 10 ml IVP 0100 ,0900,1700 TACHO Last Admin: 07/20/21 08:25 Dose: Not Given Documented by: Sodium Chloride (Sodium Chloride Flush 0.9% 10 Ml Syringe) 10 ml IVP PRN PRN PRN Reason: NEEDED PER PROVIDER ORDERS Throat Lozenges (Benzocaine/Menthol Lozenge) 1 lozenge MM Q2HR PRN PRN Reason: Throat pain Donepezil [Aricept] 5 mg PO QPM 09/11/19 Memantine HCl [Namenda] 10 mg PO DAILY 09/11/19
[2021-07-20] MEDS ORDERED: DONEPEZIL 5 MG TABLET PO SCH (21:00)
[2021-07-21] MEDS: SODIUM CHLORIDE FLUSH 0.9% 10 ML SYRINGE IVP SCH ×4 (01:20→08:46)
[2021-07-21] MEDS: SODIUM CHLORIDE FLUSH 0.9% 10 ML SYRINGE IVP PRN (06:30)
[2021-07-21] MEDS: PANTOPRAZOLE 40 MG VIAL IVP SCH (06:30)
[2021-07-21 06:32] LABS: HCT - HEMATOCRIT 33.5 % (37.0-47.0); HGB - HEMOGLOBIN 11.1 g/dL (12.0-16.0); MEAN CORPUSCULAR HEMOGLOBIN 31.5 pg (27.0-31.0); MEAN CORPUSCULAR HGB CONC 33.1 g/dL (32.0-36.0); MEAN CORPUSCULAR VOLUME 95.2 fL (81.0-99.0); MEAN PLATELET VOLUME 9.1 fL (7.9-10.8); RED BLOOD COUNT 3.52 10^6/uL (4.20-5.40); RED CELL DISTRIBUTION WIDTH 13.2 % (12.0-15.0); WHITE BLOOD COUNT 4.4 x10^3/uL (4.8-10.8)
[2021-07-21 06:42] LABS: CALCIUM 7.4 mg/dL (8.5-10.3); CREATININE 0.7 mg/dL (0.4-1.0); POTASSIUM 3.3 mmol/L (3.5-5.0)
[2021-07-21] MEDS ORDERED: POTASSIUM CHLORIDE 20 MEQ TABLET PO ONE (07:19)
[2021-07-21 07:50] VITALS: BP 135/83
[2021-07-21] MEDS: ENOXAPARIN 40 MG/0.4 ML SYRINGE SUBQ SCH (08:45)
[2021-07-21] MEDS: ACETAMINOPHEN 325 MG TABLET PO PRN ×2 (08:45→14:56)
[2021-07-21] MEDS ORDERED: MEMANTINE 5 MG TABLET PO SCH (09:00)
--- NOTE | 2021-07-21 10:57 | XRAY Report ---
PROCEDURE: Abdomen 1 View X-Ray INDICATIONS: abdominal pain, s/p lab surgery for SBO TECHNIQUE: 1 view of the abdomen were acquired. COMPARISON: 07/18/2021. FINDINGS: Surgical changes and devices: Midline skin torres are noted. Bowel: Moderately air distended bowel loops are noted throughout abdomen extending to rectum. There i s no definite peritoneal free air. Soft tissues: No masses; visualized solid organ contours appear normal in size. No suspicious abdom inal calcifications. Bones: No suspicious bony abnormalities. IMPRESSION: Persistent moderate air distention of bowel loops throughout the abdomen most likely repr esent postop ileus. Continued radiographic follow-up is recommended. Reviewed by: Alexei Marina MD on 07/21/2021 10:56 AM [facility] Approved by: Alexei Marina MD on 07/21/2021 10:56 AM [facility] Station ID: [id number]
--- NOTE | 2021-07-21 13:15 | PROVIDER PROGRESS NOTE ---
Subjective - General Admit Date: 07/17/21 Procedure Date: 07/18/21 Post Op Days: 3 Procedure Performed: Laparotomy with lysis of adhesions - Review of Systems Wound/Incisions: positive: Dressing dry and intact General: positive: Fatigue HEENT: positive: No symptoms Pulmonary: positive: No symptoms Cardiovascular: positive: No symptoms Gastrointestinal: positive: Abdominal pain. negative: Nausea, Vomiting, Flatus Musculoskeletal: positive: No symptoms Skin: positive: No symptoms Psychiatric: positive: No symptoms All Other Systems: positive: Reviewed and negative - Other Other Information/Narrative: Feeling much better. is at the bedside and reports she is eating more than she does at home. Has crumbs of bread with coffee for breakfast, baby moralez cheese and tea for lunch and Ensure for supper. He reports he tries to watch her to be sure she drinks 3 full ensures per day. She consistently reports feeling full and doesnt want more. She is afebrile. Sleeping but arouses easily Objective - Patient Data Vital Signs: Vital Signs x48h Temp Pulse Resp BP Pulse Ox 07/21/21 07:48 37.3 C 85 18 135/83 H 95 Intake & Output: Intake and Output Totals x24h 07/19/21 07/20/21 07/21/21 23:59 23:59 23:59 Intake Total 2170 2266.083 120 Output Total 800 400 Balance 1370 1866.083 120 - Lab Results Lab Results: 07/21/21 06:16 07/21/21 06:16 Other Lab Results: Lab Results x24hrs 07/21/21 07/21/21 Range/Units 06:16 06:16 WBC 4.4 L (4.8-10.8) x10^3/uL RBC 3.52 L (4.20-5.40) 10^6/uL Hgb 11.1 L (12.0-16.0) g/dL Hct 33.5 L (37.0-47.0) % MCV 95.2 (81.0-99.0) fL MCH 31.5 H (27.0-31.0) pg MCHC 33.1 (32.0-36.0) g/dL RDW 13.2 (12.0-15.0) % Plt Count 174 (130-450) 10^3/uL MPV 9.1 (7.9-10.8) fL Sodium 141 (135-145) mmol/L Potassium 3.3 L (3.5-5.0) mmol/L Chloride 109 (101-111) mmol/L Carbon Dioxide 22 (21-32) mmol/L Anion Gap 10.0 (6-13) BUN 12 (6-20) mg/dL Creatinine 0.7 (0.4-1.0) mg/dL Estimated GFR (MDRD) 81 L (>89) Glucose 90 (70-100) mg/dL Calcium 7.4 L (8.5-10.3) mg/dL - Current Medications Current Medications: Current Medications Generic Name Dose Route Start Last Admin Trade Name Freq PRN Reason Stop Dose Admin Acetaminophen 650 mg 07/21/21 08:17 07/21/21 08:45 Acetaminophen 325 Mg Tablet PO 650 mg Q4HR PRN Administration Pain or Fever > 38C (100.4F) Donepezil HCl 5 mg 07/20/21 21:00 07/20/21 20:37 Donepezil 5 Mg Tablet PO 5 mg QPM TACHO Administration Enoxaparin Sodium 40 mg 07/17/21 09:00 07/21/21 08:45 Enoxaparin 40 Mg/0.4 Ml Syringe SUBQ 40 mg DAILY TACHO Administration Memantine 10 mg 07/21/21 09:00 07/21/21 08:45 Memantine 5 Mg Tablet PO 10 mg DAILY TACHO Administration Morphine Sulfate 2 mg 07/17/21 04:38 07/19/21 19:40 Morphine 2 Mg/Ml Carpuject IVP 2 mg Q2HR PRN Administration Pain 8 to 10 Ondansetron HCl 4 mg 07/17/21 04:38 07/17/21 23:35 Ondansetron 4 Mg/2 Ml Vial IVP 4 mg Q6HR PRN Administration Nausea / Vomiting Oxycodone HCl 5 mg 07/17/21 04:38 07/20/21 00:35 Oxycodone 5 Mg Tablet PO 5 mg Q4HR PRN Administration Pain 5 to 7 Pantoprazole Sodium 40 mg 07/18/21 12:00 07/21/21 06:30 Pantoprazole 40 Mg Vial IVP 40 mg QDAC TACHO Administration Sodium Chloride 10 ml 07/17/21 04:38 07/21/21 06:30 Sodium Chloride Flush 0.9% 10 Ml Syringe IVP 10 ml PRN PRN Administration NEEDED PER PROVIDER ORDERS Sodium Chloride 10 ml 07/17/21 09:00 07/21/21 08:46 Sodium Chloride Flush 0.9% 10 Ml Syringe IVP 10 ml 0100,0900,1700 TACHO Administration Sodium Chloride 10 ml 07/19/21 01:00 07/21/21 08:46 Sodium Chloride Flush 0.9% 10 Ml Syringe IVP 10 ml 0100,0900,1700 TACHO Administration - Physical Exam Wound/Incisions: positive: Healing well, Dressing dry and intact General Appearance: positive: No acute distress, Alert Eyes Bilateral: positive: Normal inspection, PERRL, EOMI ENT: positive: ENT inspection nml, Pharynx nml Neck: positive: Nml inspection Respiratory: positive: No respiratory distress Cardiovascular: positive: Regular rate & rhythm Abdomen: positive: Nml bowel sounds, Tenderness ABX Reporting Has patient been on IV antibiotics over the past 48 hours?: No Impression/Plan - Problem List Problem List: From surgical perspective, she can be discharged. feels he can continue the Ensure regimen at home as easily as here. Leave the dressing and torres in place. Follow up with my office in 10 days
--- NOTE | 2021-07-21 13:45 | Discharge Plan ---
Discharge Plan Problem Reviewed?: Yes Disposition: Home, Self Care Condition: Stable Diet: Soft Activity Restrictions: Activity as Tolerated Shower Restrictions: No (fall precaution) Instruction Topics: Obstruction Sm Bowel Health Concerns: status post care of laparotomy for small bowel obstruction. Plan of Treatment: you may leave the dressing and torres in place and you may Follow up with surgeon's office in 10 days. You may use tylenol, daily less than 4 gram, every 4-6 hours as needed for pain control, continue safely ambulate as you can tolerate in home. Care Goals: Stabilization and resolve of your small bowel obstruction Assessment: Discussed the care plan with you and your at your bedside, answered questions and he understood Additional Instructions or Follow Up instructions: You may follow-up with your PCP in 1 to 2 weeks, follow-up surgeon in 10 days. should your symptoms return or worse, you may present to ER or call 911 for help No Smoking: If you smoke, Please STOP! Call for help.
--- NOTE | 2021-07-21 13:56 | DISCHARGE SUMMARY ---
Discharge Summary Admit Date: 07/17/21 Discharge Date: 07/21/21 Discharging Provider: Pietro Garcia Condition at Discharge: Stable Discharge Disposition: 01 Home, Self Care Discharge Facility Name: home - DIAGNOSES Discharge Diagnoses with Status of Each Condition: (1) S/P exploratory laparotomy for SBO pt tolerated diet and had bowel movements, pt has mild surgery site pain. The surgery site dressing is intact, no drainage, no sign of infection. surgeon also advise pt can be d/c to home and followup in surgeon's office on 10 days, leave the dressing and torres in place. Pt's report tylenol can control her pain. advise pt's , since pt has hx of dementia, her take care of her, not limited to if pt present significant abdominal pain, nausea, vomiting, she can not tolerate diet, fever, chill, pt should return to ER or call 911 for help. (2) Dementia stable, resume home meds - [facility] History of Present Illness: refer from Dr. Patton's HPI on 07/17/21 This is a 81-year-old female who was admitted in August 2019 for abdominal pain and now presents again with abdominal pain. 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 She has no previous history of arrhythmias or valvular heart disease. At that time an echocardiogram had left ventricular systolic function normal at 65 to 70%. Left atrial volume index and right atrial volume index were normal. No valvular heart disease. She was treated with anticoagulants in the form of 3 months of apixaban and sent home. She now returns with recurrence of sharp upper abdominal pain that began earlier in the evening. She did have vomiting 3 hours after eating dinner. There is no diarrhea, fever, chills, change in bowel habits. There is no radiation of the pain. Limiting factor the history is that of dementia where her answer frequently is "I do not know". However she is alert and oriented to person place and time. She cannot tell me when her last bowel movement was. She also thinks she is passing gas but is not sure. Blood pressure 133/84. Heart rate 84. Respirations 18. 99% on room air. CT of the abdomen has possible SMA ischemia but the SMA appears patent. 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 Labs are essentially normal. White cell count is normal. We are asked to place the patient observation for possible episode of another embolic phenomena with ischemic bowel. - CONSULTS | PROCEDURES Consultations: Dr. Childers, and Dr. Minaya Procedures: Exploratory laparotomy and lysis of adhesions - HOSPITAL COURSE Hospital Course: Patient was admitted for small bowel obstruction. Small bowel obstruction was not resolved by her own. surgeon was consulted. Then pt had Exploratory laparotomy and lysis of adhesions. After surgery, patient gradually improved. She did not develop other complication at this time. Then she can tolerate diet, and she had bowel movements. surgeon advised pt can be discharged to home. - ALLERGIES Allergies/Adverse Reactions: Allergies Allergy/AdvReac Type Severity Reaction Status Date / Time No Known Drug Allergies Allergy Verified 07/17/21 00:33 - MEDICATIONS Home Medications: Ambulatory Orders Medication Instructions Recorded Confirmed Donepezil [Aricept] 5 mg PO QPM 09/11/19 07/17/21 Memantine HCl [Namenda] 10 mg PO DAILY 09/11/19 07/17/21 - PHYSICAL EXAM AT DISCHARGE General Appearance: positive: No acute distress, Alert. negative: Lethargic Eyes Bilateral: positive: Normal inspection, No lid inflammation ENT: positive: ENT inspection nml, No signs of dehydration. negative: Purulent nasal drainage Neck: positive: Nml inspection, Trachea midline. negative: Tracheal deviation Respiratory: positive: Chest non-tender, No respiratory distress, Breath sounds nml. negative: Wheezes Cardiovascular: positive: Regular rate & rhythm. negative: Tachycardia, Bradycardia, Systolic murmur Peripheral Pulses: positive: 2+ Abdomen: positive: Non-tender, Nml bowel sounds, Other (surgery site locate at middle of abdomen, dressing is intact without drainage or sign indication for i nfection.). negative: Tenderness Back: positive: Nml inspection Skin: positive: Color nml, Warm, Dry. negative: Cyanosis Extremities: positive: Non-tender, Full ROM, Nml appearance Neurologic/Psychiatric: positive: Motor nml, Sensation nml. negative: Weakness, Sensory loss, Facial droop, Slurred/abnml speech - LABS Result Diagrams: 07/21/21 06:16 07/21/21 06:16 - SEPSIS Current Stage of Sepsis: Ruled out - FOLLOW UP Follow Up: you may leave the dressing and torres in place and you may Follow up with surgeon's office in 10 days. You may use tylenol, daily less than 4 gram, every 4-6 hours as needed for pain control, continue safely ambulate as you can tolerate in home. You may follow-up with your PCP in 1 to 2 weeks, follow-up surgeon in 10 days. should your symptoms return or worse, you may present to ER or call 911 for help - TIME SPENT Time Spent in Discharge (Minutes): 30
== END 2021-07-21 15:36 | disposition home or self-care (01) | DRG 337 ==
LOC: ED 00:23 → MS2 04:38 → OBSVTOIN 12:14
PROVIDERS: ADMIT Specialist; ATTEND Nurse Practitioner Gerontology
PROC: 0DN80ZZ Release Small Intestine, Open Approach (ICD-10-PCS; principal; 2021-07-18 16:30)
DX: K56.609 Unspecified intestinal obstruction, unspecified as to partial versus complete obstruction (principal); K56.52 Intestinal adhesions [bands] with complete obstruction; H54.7 Unspecified visual loss; G30.9 Alzheimer's disease, unspecified; F02.80 Dementia in other diseases classified elsewhere, unspecified severity, without behavioral disturbance, psychotic disturbance, mood disturbance, and anxiety; Z79.899 Other long term (current) drug therapy; Z85.3 Personal history of malignant neoplasm of breast; F03.90 Unspecified dementia, unspecified severity, without behavioral disturbance, psychotic disturbance, mood disturbance, and anxiety
CPT/HCPCS: 36415; 71045; 74018; 74174; 74177; 74250; 76770; 80048; 80053; 81003; 83605; 83690; 85025; 85027; 85651; 96374; 99284; 99285; A9270; G0378; J0131; J0330; J1170; J1650; J7120; Q9963; Q9967; 81001; 87086

== ENCOUNTER 2022-06-08 08:00 | Outpatient (CLI) | payer MEDICARE, OTHER ==
[2022-06-08 15:42] LABS: BASOPHILS % (AUTO) 0.8 %; EOSINOPHILS # (AUTO) 0.1 10^3/uL (0.0-0.7); EOSINOPHILS % (AUTO) 2.1 %; HCT - HEMATOCRIT 39.7 % (37.0-47.0); HGB - HEMOGLOBIN 12.8 g/dL (12.0-16.0); LYMPHOCYTES # (AUTO) 1.7 10^3/uL (1.5-3.5); LYMPHOCYTES % (AUTO) 33.2 %; MEAN CORPUSCULAR HEMOGLOBIN 30.6 pg (27.0-31.0); MEAN CORPUSCULAR HGB CONC 32.2 g/dL (32.0-36.0); MEAN PLATELET VOLUME 9.3 fL (7.9-10.8); MONOCYTES # (AUTO) 0.3 10^3/uL (0.0-1.0); MONOCYTES % (AUTO) 6.2 %; NEUTROPHILS % (AUTO) 57.5 %; PLT - PLATELET COUNT 222 10^3/uL (130-450); RED BLOOD COUNT 4.18 10^6/uL (4.20-5.40); RED CELL DISTRIBUTION WIDTH 13.4 % (12.0-15.0); WHITE BLOOD COUNT 5.2 x10^3/uL (4.8-10.8)
[2022-06-08 15:54] LABS: ALBUMIN 3.8 g/dL (3.2-5.5); ALKALINE PHOSPHATASE 77 IU/L (42-121); ALT ALANINE AMINOTRANSFERASE 10 IU/L (10-60); AST ASPARTATE AMINOTRANSFERASE 20 IU/L (10-42); BILIRUBIN,TOTAL 0.7 mg/dL (0.2-1.0); BUN - BLOOD UREA NITROGEN 20 mg/dL (6-20); CARBON DIOXIDE - CO2 27 mmol/L (21-32); CHLORIDE 102 mmol/L (101-111); CHOL/HDL RATIO 3.2 (<4.4); CHOLESTEROL 189 mg/dL; CREATININE 0.9 mg/dL (0.4-1.0); GFR - MDRD 60 (>89); GLUCOSE 87 mg/dL (70-100); HDL CHOLESTEROL 60 mg/dL; LDL CHOLESTEROL,CALCULATED 107 mg/dL; LDL/HDL RATIO 1.8 (<4.4); POTASSIUM 4.1 mmol/L (3.5-5.0); SODIUM 137 mmol/L (135-145); TOTAL PROTEIN 7.5 g/dL (6.7-8.2); TRIGLYCERIDES 110 mg/dL; VLDL CHOLESTEROL 22 mg/dL
[2022-06-08 16:05] LABS: THYROID STIMULATING HORMONE 4.04 uIU/mL (0.34-5.60)
== END 2022-06-08 23:59 | disposition home or self-care (01) ==
LOC: LAB.R 08:00
PROVIDERS: ATTEND Internal Medicine
DX: Z00.00 Encounter for general adult medical examination without abnormal findings (principal); F03.90 Unspecified dementia, unspecified severity, without behavioral disturbance, psychotic disturbance, mood disturbance, and anxiety; Z13.6 Encounter for screening for cardiovascular disorders; F32.A Depression, unspecified; C50.919 Malignant neoplasm of unspecified site of unspecified female breast
CPT/HCPCS: 80053; 80061; 82607; 83721; 84443; 85025

== ENCOUNTER 2022-12-12 16:05 | Outpatient (CLI) | payer MEDICARE, OTHER ==
--- NOTE | 2022-12-12 17:17 | XRAY Report ---
PROCEDURE: Knee 4 View RT INDICATIONS: RIGHT KNEE PAIN TECHNIQUE: 4 views of the right knee(s) were acquired. COMPARISON: None. FINDINGS: Bones: No fractures or dislocations. Mild to moderate tricompartmental osteoarthritis is seen most n otably in medial femoral tibial compartment. No suspicious bony lesions. Soft tissues: No significant knee joint effusion. No suspicious soft tissue calcifications or masses . IMPRESSION: No acute bony abnormality. 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 No significant joint effusion. Reviewed by: Alexei Marina MD on 12/12/2022 5:16 PM PDT Approved by: Alexei Marina MD on 12/12/2022 5:16 PM PDT Station ID: [id number]
== END 2022-12-12 16:07 | disposition home or self-care (01) ==
LOC: DI.WOS 16:05
PROVIDERS: ATTEND Orthopaedic Surgery
DX: M17.11 Unilateral primary osteoarthritis, right knee (principal)